=== PATIENT | female | born 1935 | race Caucasian/White ===

== ENCOUNTER 2017-07-02 06:37 | Inpatient (IN) | payer MEDICARE, SELFPAY ==
[2017-06-07 09:24] VITALS: BP 129/67; PULSE 62; RESP 16; TEMP 36.8; O2SAT 96; BMI 34.1
--- NOTE | 2017-06-07 09:44 | SDCEKG_ITS ---
Test Reason : Blood Pressure : / mmHG Vent. Rate : 059 BPM Atrial Rate : 059 BPM P-R Int : 170 ms QRS Dur : 096 ms QT Int : 442 ms P-R-T Axes : 020 049 066 degrees QTc Int : 437 ms Sinus bradycardia Otherwise normal ECG Confirmed by JAIME PASCAL ([id number]), multimedia editor JIM RIBEIRO ([id number] on 06/12/2017 9:59:05 AM Referred By: WILFREDO WOLFF Confirmed By:JAIME PASCAL
[2017-06-07 10:20] LABS: Hematocrit 37.2 % (37-47); Hemoglobin 12.5 g/dl (12.0-15.0); Mean Corp Hgb Conc 33.6 g/gl (32-36); Mean Corpuscular Volume 89.4 fL (81-99); Mean Platelet Vol. 10.3 fl (6.2-12.0); Platelet Count 279 K/mm3 (150-450); RBC Distribution Width CV 13.6 % (11.6-14.6); RBC Distribution Width SD 43.4 fl (35.1-43.9); Red Blood Count 4.16 M/mm3 (4.2-5.4); Scan Indicated on CBC? Y/N NO; White Blood Count 6.1 K/mm3 (4.4-11.0)
[2017-07-02] VITALS (14 sets, daily range): BP systolic 80–155; BP diastolic 38–71; PULSE 68–92; RESP 14–16; TEMP 36–36.7; O2SAT 91–100; BMI 34.1
[2017-07-02 07:17] LABS: Anion Gap 9 (5-15); BUN 21 mg/dL (7-18); BUN/Creat Ratio 20.6 RATIO (10-20); Calcium,Total 8.8 mg/dL (8.5-10.1); Chloride 106 mmol/L (98-107); Creatinine, Serum 1.02 mg/dL (0.55-1.02); EST Glomerular Filtration Rate 55 mL/min (>60); Est Glom Filt Rate - Afr Amer 67 mL/min (>60); Estimated Creatinine Clearance 39.58 ml/min; Glucose 94 mg/dL (74-106); Potassium 3.5 mmol/L (3.5-5.1); Sodium Level 141 mmol/L (136-145)
[2017-07-02] MEDS: Lactated Ringers 1,000 ML 999 ML IV (07:47)
[2017-07-02] MEDS: Cefazolin 2 GM in 0.9% Normal Saline 100 ML IV (09:40)
--- NOTE | 2017-07-02 11:17 | OP.PCM_ITS ---
Report of Operation Date of Procedure: 07/02/17 Pre-Operative Diagnosis: Severe end-stage osteoarthritis right hip Post-Operative Diagnosis: Severe end-stage osteoarthritis right hip Surgery/Procedure Performed:: Total hip arthroplasty right using anterior lateral approach Description of Surgical Findings:: Periarticular osteophytes, subchondral sclerosis consistent with end-stage osteoarthritis Type of Anesthesia:: General Anesthesiologist: Jazzmine Robert Special Medications: txa Specimen's removed: Bone and soft tissue Estimated Blood Loss (mL): 100 Fluids Replaced: See anesthesia report Description of Procedure: Implants: Accolade 2 size 5 femur 127?, 52 cluster hole Trident cup with MDM components metal liner Biolox +4 head Surgical indications: Patient has severe end-stage osteoarthritic changes in the right hip. They have failed conservative measures including activity modification, anti-inflammatories, use of assistive devices. This to the point where the pain affects their ability to enjoy life and complete activities of daily living without discomfort. Patient has elected to undergo the above procedure Procedure description: The patient was greeted in the preoperative area the right hip was marked with surgical marker preoperative antibiotics administered. The patient was then taken to or suite in stable condition. Preoperative tranexamic acid was also utilized. Once the patient was placed in the supine position on the operating room table and once adequate anesthesia was obtained they were then placed in the lateral decubitus position with the surgical hip facing the field. All bony prominences were well-padded. A commercial hip position was utilized. The appropriate extremity was then prepped and draped in usual sterile fashion. Ioban was placed on the skin. Surgical timeout was performed and surgery was commenced. Standard anterolateral approach to the hip was then performed incision was planned and carried out with a #10 blade. Dissection was then carried length of the incision to the IT band which was split proximally and distally. A Charnley retractor was then placed for soft tissue retraction exposing the gluteus medius. The hip was then approached through a transgluteal approach and dislocated through an anterior capsulectomy. Severe eburnation of bone was noted periarticular osteophytes were identified consistent with severe end- stage osteoarthritis. A femoral osteotomy was then created approximately 1 fingerbreadth above the lesser trochanter. This was measured and placed on the back table. Once this was complete acetabular retractors were placed anteriorly and posteriorly and a 4 mm Steinmann pin was placed anterior superior aspect of the acetabulum for soft tissue retention. Labrum was then removed from the acetabulum exposing the entire cup of the acetabulum. Sequential reaming was then commenced and the acetabulum was medialized and sequentially widened in order to accommodate appropriate size cup. The acetabular cup was then impacted into position to the appropriate depth referencing approximately 30? inversion 45? of inclination. Excellent purchase was obtained. No screws were placed in the cup. The metal MDM liner was then placed in the locking mechanism of the acetabulum, locking mechanism was engaged and confirmed to be locked. Attention was then turned to the femoral preparation. The hip was placed in the 90/90 position and a lateralizing box osteotome was utilized. Femoral starting awl was used followed by sequential broaching to the appropriate size. Excellent purchase was obtained with the stem no stem subsidence and excellent rotational stability was confirmed. A calcar reamer was then used in the trial head neck was placed on the broach. The hip was then located and taken through full range of motion flexion internal and external rotation as well as extension. Excellent stability was noted no impingement was identified of the components and leg lengths appear to be appropriate. The hip was at this point dislocated and the trial femoral components were removed. The final femoral stem was then implanted and impacted to the appropriate depth. Again excellent purchase was obtained no stem subsidence or rotational instability was noted. The hip was once again trialed and confirmation of leg length and stability was performed. Soft tissue tension also appeared to be appropriate. At this point the hip was redislocated and the trunnion was cleaned and dried meticulously in the appropriate size femoral head was placed on the clean dry trunnion using a 12/14 Bull taper. The hip was once again relocated and again taken through full range of motion. I did inject a cocktail of postoperative pain medication in the deep and superficial tissues. A quick Betadine bath was performed followed by copious irrigation. Anatomic closure of the gluteus medius and minimus was performed with #1 Vicryl [id number] type fashion followed by closure of the IT band with #1 Vicryl 0 Vicryl was utilized in subcutaneous tissue and surgical fish were placed in the skin. A well- padded nonadherent dressing was applied. Patient was taken to PACU in stable condition. No complications were identified. Will follow standard postop protocol for total hip arthroplasty. Patient must use assistive device for ambulation for approximately 6 weeks of the gluteal musculature heals. - Admit VTE Documentation VTE Present on Admission: Yes VTE Mechan Device Prophylaxis: SCD's, Thigh High EDWARD Hose VTE Pharm Prophylaxis ordered?: Yes
--- NOTE | 2017-07-02 11:40 | RAD_ITS ---
STUDY: X-RAY - PELVIS AND RIGHT HIP REASON FOR EXAM: Female, 82 years old. Total hip replacement. TECHNIQUE: Radiological exam, hip, unilateral, with pelvis when performed; 2 or 3 views. COMPARISON: None. FINDINGS: The patient is status post total right hip replacement. There is good alignment. Postoperative soft tissue changes. RAD/Hip Min 2 Views (Portable) IMPRESSION: Status post total hip replacement. There is good alignment. Postoperative soft tissue changes. Electronically Signed: Manoj Burt MD at 12:23 EST Tel [phone], Service support ,
[2017-07-02] MEDS: Lactated Ringers 1,000 ML 125 ML IV ×2 (12:59→16:49)
--- NOTE | 2017-07-02 13:54 | CASEMGMT ---
Social Work Note Updated by RN MANISHA Tillman - that the pt had called over the weekend expressing interest in staying at the hospital for rehab. According to chart review the pt went to [facility] in 2007. [facility] would not approve [facility], and pt was placed on TCU list. Will confirm discharge plan with pt tomorrow, 07/03. Plan: TCU pending pre-cert. Nevaeh Linares, STRIP MINE SUPERVISOR, SOCK LINING STITCHER
--- NOTE | 2017-07-02 14:20 | PCM.CONS.GEN ---
Problem List (1) Status post total replacement of right hip Status: Acute (2) Depression Status: Chronic (3) Rheumatoid arthritis Status: Chronic (4) Hypertension Status: Chronic Reason for Consult Date of Consultation: 07/02/17 Reason for Consultation: Postoperative medical management. History of Present Illness: The patient is a 82 year old F with past medical history as mentioned above admitted for elective right total hip replacement for 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 At this time, patient denied any significant complaints. Right hip pain is currently under control with the current pain medication regimen. She denied chest pain or shortness of breath. Denies abdominal pain, nausea vomiting. Denies cough or sputum production. Denied fever chills. She has a history of rheumatoid arthritis and she has been on hydroxychloroquine and tramadol for pain and seemed to be under control. She has a history of hypertension and she has been on losartan and Norvasc and also seemed to be under control. She has a history of depression and she has been on Zoloft. At this time, her vital signs are stable, afebrile, pulse ox is 96% on 2 L. CBC from June 07, 2001 reviewed and was unremarkable. BMP from today also reviewed and was unremarkable. Past Medical History Past Medical History (Chronic Problems): Chronic Problems Depression (Chronic) Rheumatoid arthritis (Chronic) Hypertension (Chronic) Allergies ibuprofen Allergy (Verified 06/07/17 09:15) Other REACTION W/ KIDNEYS meloxicam [From Mobic] Allergy (Verified 06/07/17 09:15) Other REACTION WITH KIDNEYS methylprednisolone [From Medrol] Allergy (Verified 06/07/17 09:15) Other MADE HER FEEL FUNNY IN THE HEAD Sulfa (Sulfonamide Antibiotics) Allergy (Verified 06/07/17 09:15) Unknown UNK REACTION-HAD A CHILD Home Medications: Ambulatory Orders Medication Instructions Recorded Amlodipine Besylate [Norvasc] 10 mg PO DAILY 06/07/17 Aspirin E.C. 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 Lives: With Family Smoking Status: Never smoker Alcohol: None Drugs: None - *Family History Maternal History Items: No pertinent history Paternal History Items: No pertinent history Review of Systems Constitutional: Denies: Anorexia, Chills, Fever, Weakness Eyes: Denies: Blurred vision, Double vision, Drainage, Redness HEENT: Denies: Difficulty Hearing, Ear Pain, Eye Pain, Nasal Congestion, Sore Throat Cardiovascular: Denies: Chest Pain, Chest Pressure, Chest Tightness, Heaviness, Light Headedness, Palpitations, Syncope Respiratory: Denies: Cough, Pleuritic Pain, Shortness of Breath, Sputum production, Wheezing Gastrointestinal: Denies: Abdominal Pain, Constipation, Diarrhea, Nausea, Vomiting Genitourinary: Denies: Dysuria, Frequency, Hematuria Musculoskeletal: Reports: Joint Pain. Denies: Arm Pain, Back Pain Skin: Denies: Dryness, Rash Neurological: Denies: Balance problems, Double vision, Slurred speech, Confusion, Focal weakness, Headaches, Tingling Psychiatric: Denies: Anxiety, Depression Endocrine: Denies: Change in Body Habitus, Polydipsia Patient Problems: Active and Suspected Problems Status post total replacement of right hip (Acute) - Physical Exam General: Alert, Oriented x3, Cooperative, No apparent distress HEENT: Atraumatic, PERRLA, EOMI Oral: Moist Mucosa, No Gingival or Mucosal Lesions/ Ulcerations Neck: Supple, No JVD, Negative Carotid Bruits, Trachea Midline, Thyroid Normal Size and Texture Lungs: Clear to auscultation, No rhonchi, No wheeze, No rales, Diminished Cardiovascular: Regular rate, Regular Rhythm, Normal S1, Normal S2, Murmur - Faint systolic murmur. Abdomen: Bowel Sounds Present, Soft, Non Tender, Non-Distended, No Hepato-splenomegaly Extremities: No clubbing, No cyanosis, No edema Skin: No rashes, No breakdown Lymphatic: No Cervical, Supraclavicular, or Inguinal Adenopathy Neurological: Cranial nerves II-XII grossly intact, Motor Exam 5/5 strength throughout Psych/Mental Status: Normal Affect, Appropriate, Alert and oriented to time, place, person, mood and affect Vital Signs Temp Pulse Resp BP Pulse Ox 97.5 F L 78 16 115/38 L 96 07/02/17 12:44 07/02/17 12:44 07/02/17 12:44 07/02/17 12:44 07/02/17 12:44 Oxygen Flow Rate 2 Oxygen Delivery Method Nasal Cannula Weight: 204 lb 15.773 oz Body Mass Index (BMI) 34.1 Intake and Output for Last 24 Hours 06/30/17 07/01/17 07/02/17 23:59 23:59 23:59 Intake Total 2300 / 2300 Balance 2300 / 2300 Laboratory Tests Past 24 Hrs 07/02/17 07:00 Sodium 141 Potassium 3.5 Chloride 106 Carbon Dioxide 26.0 Anion Gap 9 BUN 21 H Creatinine 1.02 Estim Creat Clear Calc 39.58 Est GFR (MDRD) Af Amer 67 Est GFR (MDRD) Non-Af 55 L BUN/Creatinine Ratio 20.6 H Glucose 94 Calcium 8.8 Clinical Impression(s) from Imaging Studies Hip X-Ray 07/02/17 11:40 IMPRESSION: Status post total hip replacement. There is good alignment. Postoperative soft tissue changes. Electronically Signed: Manoj Burt MD at 12:23 EST Tel [phone], Service support , Assessment/Plan Active and Suspected Problems Status post total replacement of right hip (Acute) This is an 82 years old female patient admitted for elective total hip replacement for 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 #1 status post elective right total hip replacement: Days U. At this time, her right hip pain is well controlled with current pain medication regimen. Vital signs are stable. Preop CBC and today's BMP reviewed and were unremarkable. He is on IV cefazolin for perioperative prophylaxis. She is on IV morphine and oxycodone as needed for pain. Orthopedic surgery is managing. #2 hypertension: Blood pressure stable, continue Norvasc and losartan. #3 rheumatoid arthritis: Continue Plaquenil, oxycodone as needed for pain and IV morphine as well. #4 depression: Continue Zoloft. #5 DVT prophylaxis: She is on full dose of aspirin twice daily. This note was generated with [employer] dictation software. It may contain incorrect words, spelling, and punctuation that were not noted in checking the note before signing. Code Visit Inpatient E&M: 67592 Init Hosp L2
--- NOTE | 2017-07-02 14:30 | CON.PCM_ITS ---
Problem List (1) Status post total replacement of right hip Status: Acute (2) Depression Status: Chronic (3) Rheumatoid arthritis Status: Chronic (4) Hypertension Status: Chronic Reason for Consult Date of Consultation: 07/02/17 Reason for Consultation: Postoperative medical management. History of Present Illness: The patient is a 82 year old F with past medical history as mentioned above admitted for elective right total hip replacement for 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 At this time, patient denied any significant complaints. Right hip pain is currently under control with the current pain medication regimen. She denied chest pain or shortness of breath. Denies abdominal pain, nausea vomiting. Denies cough or sputum production. Denied fever chills. She has a history of rheumatoid arthritis and she has been on hydroxychloroquine and tramadol for pain and seemed to be under control. She has a history of hypertension and she has been on losartan and Norvasc and also seemed to be under control. She has a history of depression and she has been on Zoloft. At this time, her vital signs are stable, afebrile , pulse ox is 96% on 2 L. CBC from June 07, 2001 reviewed and was unremarkable. BMP from today also reviewed and was unremarkable. Past Medical History Past Medical History (Chronic Problems): Chronic Problems Depression (Chronic) Rheumatoid arthritis (Chronic) Hypertension (Chronic) Allergies ibuprofen Allergy (Verified 06/07/17 09:15) Other REACTION W/ KIDNEYS meloxicam [From Mobic] Allergy (Verified 06/07/17 09:15) Other REACTION WITH KIDNEYS methylprednisolone [From Medrol] Allergy (Verified 06/07/17 09:15) Other MADE HER FEEL FUNNY IN THE HEAD Sulfa (Sulfonamide Antibiotics) Allergy (Verified 06/07/17 09:15) Unknown UNK REACTION-HAD A CHILD Home Medications: Ambulatory Orders Medication Instructions Recorded Amlodipine Besylate [Norvasc] 10 mg PO DAILY 06/07/17 Aspirin E.C. 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 Lives: With Family Smoking Status: Never smoker Alcohol: None Drugs: None - *Family History Maternal History Items: No pertinent history Paternal History Items: No pertinent history Review of Systems Constitutional: Denies: Anorexia, Chills, Fever, Weakness Eyes: Denies: Blurred vision, Double vision, Drainage, Redness HEENT: Denies: Difficulty Hearing, Ear Pain, Eye Pain, Nasal Congestion, Sore Throat Cardiovascular: Denies: Chest Pain, Chest Pressure, Chest Tightness, Heaviness, Light Headedness, Palpitations, Syncope Respiratory: Denies: Cough, Pleuritic Pain, Shortness of Breath, Sputum production, Wheezing Gastrointestinal: Denies: Abdominal Pain, Constipation, Diarrhea, Nausea, Vomiting Genitourinary: Denies: Dysuria, Frequency, Hematuria Musculoskeletal: Reports: Joint Pain. Denies: Arm Pain, Back Pain Skin: Denies: Dryness, Rash Neurological: Denies: Balance problems, Double vision, Slurred speech, Confusion , Focal weakness, Headaches, Tingling Psychiatric: Denies: Anxiety, Depression Endocrine: Denies: Change in Body Habitus, Polydipsia Patient Problems: Active and Suspected Problems Status post total replacement of right hip (Acute) - Physical Exam General: Alert, Oriented x3, Cooperative, No apparent distress HEENT: Atraumatic, PERRLA, EOMI Oral: Moist Mucosa, No Gingival or Mucosal Lesions/ Ulcerations Neck: Supple, No JVD, Negative Carotid Bruits, Trachea Midline, Thyroid Normal Size and Texture Lungs: Clear to auscultation, No rhonchi, No wheeze, No rales, Diminished Cardiovascular: Regular rate, Regular Rhythm, Normal S1, Normal S2, Murmur - Faint systolic murmur. Abdomen: Bowel Sounds Present, Soft, Non Tender, Non-Distended, No Hepato- splenomegaly Extremities: No clubbing, No cyanosis, No edema Skin: No rashes, No breakdown Lymphatic: No Cervical, Supraclavicular, or Inguinal Adenopathy Neurological: Cranial nerves II-XII grossly intact, Motor Exam 5/5 strength throughout Psych/Mental Status: Normal Affect, Appropriate, Alert and oriented to time, place, person, mood and affect Vital Signs Temp Pulse Resp BP Pulse Ox 97.5 F L 78 16 115/38 L 96 07/02/17 12:44 07/02/17 12:44 07/02/17 12:44 07/02/17 12:44 07/02/17 12:44 Oxygen Flow Rate 2 Oxygen Delivery Method Nasal Cannula Weight: 204 lb 15.773 oz Body Mass Index (BMI) 34.1 Intake and Output for Last 24 Hours 06/30/17 07/01/17 07/02/17 23:59 23:59 23:59 Intake Total 2300 / 2300 Balance 2300 / 2300 Laboratory Tests Past 24 Hrs 07/02/17 07:00 Sodium 141 Potassium 3.5 Chloride 106 Carbon Dioxide 26.0 Anion Gap 9 BUN 21 H Creatinine 1.02 Estim Creat Clear Calc 39.58 Est GFR (MDRD) Af Amer 67 Est GFR (MDRD) Non-Af 55 L BUN/Creatinine Ratio 20.6 H Glucose 94 Calcium 8.8 Clinical Impression(s) from Imaging Studies Hip X-Ray 07/02/17 11:40 IMPRESSION: Status post total hip replacement. There is good alignment. Postoperative soft tissue changes. Electronically Signed: Maonj Burt MD at 12:23 EST Tel [phone], Service support , Assessment/Plan Active and Suspected Problems Status post total replacement of right hip (Acute) This is an 82 years old female patient admitted for elective total hip replacement for 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 #1 status post elective right total hip replacement: Days U. At this time, her right hip pain is well controlled with current pain medication regimen. Vital signs are stable. Preop CBC and today's BMP reviewed and were unremarkable. He is on IV cefazolin for perioperative prophylaxis. She is on IV morphine and oxycodone as needed for pain. Orthopedic surgery is managing. #2 hypertension: Blood pressure stable, continue Norvasc and losartan. #3 rheumatoid arthritis: Continue Plaquenil, oxycodone as needed for pain and IV morphine as well. #4 depression: Continue Zoloft. #5 DVT prophylaxis: She is on full dose of aspirin twice daily. This note was generated with [employer] dictation software. It may contain incorrect words, spelling, and punctuation that were not noted in checking the note before signing. Code Visit Inpatient E&M: 97806 Init Hosp L2
[2017-07-02] MEDS: Ondansetron 4 MG/2 ML Vial IV (14:41)
--- NOTE | 2017-07-02 16:12 | NURSING ---
called to room by ELECTRICAL MAINTENANCE SUPERVISOR requesting assistance to assist pt to bed. pt verbalized nausea and sl. dizziness while sitting in recliner. assisted back to bed and vital checked. placed in reverse trend. pt drowsy but a&ox3. states a little bit dizziness continues
--- NOTE | 2017-07-02 16:16 | NURSING ---
aware Nicky CORMIER sending dr. grant message regarding pt. pt continues to be drowsy but response appropriately.
--- NOTE | 2017-07-02 16:20 | NURSING ---
bed laid flat pt states feels a little better but still sl. nausea. requesting hob raised a little, discussed hob in relation to dizziness. states feels a little better that would like it up. warm blanket applied. no distress noted. call light within reach
[2017-07-02] MEDS: Hydroxychloroquine 200 MG Tablet PO (16:51)
[2017-07-02] MEDS: oxyCODONE 5 MG Tablet PO (16:54)
[2017-07-02] MEDS: Cefazolin 1 GM/50 ML BAG IV (17:26)
[2017-07-02] MEDS: Aspirin 325 MG Tablet PO (21:05)
[2017-07-02] MEDS: Acetaminophen 500 MG Tablet 1000 MG PO (21:05)
[2017-07-02] MEDS: Senna/Docusate Sodium 1 Tablet 2 TABLET PO (21:06)
[2017-07-03] VITALS (7 sets, daily range): BP systolic 127–155; BP diastolic 40–83; PULSE 70–77; RESP 16–18; TEMP 36.3–36.9; O2SAT 95–96
[2017-07-03] MEDS: Lactated Ringers 1,000 ML 125 ML IV (01:19)
[2017-07-03] MEDS: Cefazolin 1 GM/50 ML BAG IV (01:42)
[2017-07-03] MEDS: oxyCODONE 5 MG Tablet PO (01:44)
[2017-07-03 06:00] LABS: Hematocrit 31.1 % (37-47); Hemoglobin 9.9 g/dl (12.0-15.0); Mean Corp Hgb Conc 31.8 g/gl (32-36); Mean Corpuscular Hgb 29.3 pg (27.0-32.0); Platelet Count 243 K/mm3 (150-450); RBC Distribution Width CV 14.4 % (11.6-14.6); Red Blood Count 3.38 M/mm3 (4.2-5.4); White Blood Count 12.4 K/mm3 (4.4-11.0)
[2017-07-03 06:01] LABS: Scan Indicated on CBC? Y/N NO
[2017-07-03 06:17] LABS: Anion Gap 7 (5-15); BUN 16 mg/dL (7-18); BUN/Creat Ratio 18.7 RATIO (10-20); Calcium,Total 8.1 mg/dL (8.5-10.1); Chloride 104 mmol/L (98-107); Creatinine, Serum 0.86 mg/dL (0.55-1.02); EST Glomerular Filtration Rate 68 mL/min (>60); Est Glom Filt Rate - Afr Amer 82 mL/min (>60); Estimated Creatinine Clearance 45.05 ml/min; Glucose 102 mg/dL (74-106); Sodium Level 138 mmol/L (136-145)
[2017-07-03] MEDS: Acetaminophen 500 MG Tablet 1000 MG PO ×3 (06:26→22:13)
[2017-07-03] MEDS: Famotidine 20 MG Tablet PO (06:26)
[2017-07-03] MEDS: amLODIPine 10 MG Tablet PO (07:57)
[2017-07-03] MEDS: Multivitamins,Therapeutic Tablet 1 TABLET PO (07:57)
[2017-07-03] MEDS: Aspirin 325 MG Tablet PO ×2 (07:57→16:33)
[2017-07-03] MEDS: Losartan Potassium 25 MG Tablet PO (07:57)
[2017-07-03] MEDS: Hydroxychloroquine 200 MG Tablet PO ×2 (07:57→16:33)
[2017-07-03] MEDS: Sertraline 100 MG Tablet PO (07:58)
[2017-07-03] MEDS: Senna/Docusate Sodium 1 Tablet 2 TABLET PO ×2 (07:58→22:13)
--- NOTE | 2017-07-03 08:07 | PCM.PN.ORT ---
Patient Problems: Active and Suspected Problems Status post total replacement of right hip (Acute) Subjective: Patient sitting at bedside eating breakfast. Patient states she is having some heartburn, she has not had her Pepcid. Patient denies chest pain, shortness breath, calf pain, nausea vomiting. Patient states pain is been well managed Objective: Cycles clean dry intact, negative signs and symptoms of DVT. Patient's vitals labs within normal limits. Patient is afebrile neurovascular is otherwise intact. - Physical Exam General: Alert, Oriented x3, Cooperative HEENT: PERRLA Oral: Moist Mucosa Neurological: Cranial nerves II-XII grossly intact Psych/Mental Status: Normal Affect, Alert and oriented to time, place, person, mood and affect Vital Signs Temp Pulse Resp BP Pulse Ox 97.3 F L 74 18 155/64 H 95 07/03/17 07:55 07/03/17 07:55 07/03/17 07:55 07/03/17 07:55 07/03/17 07:58 Oxygen Flow Rate 2 Oxygen Delivery Method Nasal Cannula Weight: 92.98 kg Body Mass Index (BMI) 34.1 Intake and Output for Last 24 Hours 07/01/17 07/02/17 07/03/17 23:59 23:59 23:59 Intake Total 2300 / 2300 2100 / 2100 Balance 2300 / 2300 2100 / 2100 Laboratory Tests Past 24 Hrs 07/03/17 07/03/17 05:35 05:35 WBC 12.4 H RBC 3.38 L Hgb 9.9 L Hct 31.1 L MCV 92.0 MCH 29.3 MCHC 31.8 L RDW 14.4 RDW Differential 48.0 H Plt Count 243 MPV 10.0 Sodium 138 Potassium 4.0 Chloride 104 Carbon Dioxide 27.0 Anion Gap 7 BUN 16 Creatinine 0.86 Estim Creat Clear Calc 45.05 Est GFR (MDRD) Af Amer 82 Est GFR (MDRD) Non-Af 68 BUN/Creatinine Ratio 18.7 Glucose 102 Calcium 8.1 L Assessment/Plan Active and Suspected Problems Status post total replacement of right hip (Acute) Status post right total hip arthroplasty Plan 1. Continue all pain medications as prescribed 2. Begin physical therapy today, weight-bear as tolerated with walker. 3. Aspirin 325 mg 1 p.o. every 12 hours ?30 days for postop DVT prophylaxis 4. Encourage incentive spirometry 5. Possible discharge to [facility] fourth floor rehab tomorrow
--- NOTE | 2017-07-03 08:53 | PN_ITS ---
Patient Problems: Active and Suspected Problems Status post total replacement of right hip (Acute) Subjective: Chief complaint: Follow-up after consultation for postoperative medical management. Patient seen and examined. No acute events overnight. Right hip pain is tolerable, under control. She denies any other complaints except mild back discomfort. Denied chest pain or shortness of breath. Denied cough or sputum production. Denies fever chills. Her vital signs are stable. - Physical Exam General: Alert, Oriented x3, Cooperative, No apparent distress HEENT: Atraumatic, PERRLA, EOMI Oral: Moist Mucosa, No Gingival or Mucosal Lesions/ Ulcerations Neck: Supple, No JVD, Negative Carotid Bruits, Trachea Midline, Thyroid Normal Size and Texture Lungs: Clear to auscultation, No rhonchi, No wheeze, No rales, Diminished Cardiovascular: Regular rate, Regular Rhythm, Normal S1, Normal S2, Murmur - Systolic murmur. Abdomen: Bowel Sounds Present, Soft, Non Tender, Non-Distended, No Hepato- splenomegaly Extremities: No clubbing, No cyanosis, No edema Skin: No rashes, No breakdown Lymphatic: No Cervical, Supraclavicular, or Inguinal Adenopathy Neurological: Cranial nerves II-XII grossly intact, Motor Exam 5/5 strength throughout Psych/Mental Status: Normal Affect, Appropriate, Alert and oriented to time, place, person, mood and affect Vital Signs Temp Pulse Resp BP Pulse Ox 97.3 F L 70 18 155/64 H 95 07/03/17 07:55 07/03/17 08:01 07/03/17 07:55 07/03/17 07:55 07/03/17 07:58 Oxygen Flow Rate 1 Oxygen Delivery Method Nasal Cannula Weight: 204 lb 15.773 oz Body Mass Index (BMI) 34.1 Intake and Output for Last 24 Hours 07/01/17 07/02/17 07/03/17 23:59 23:59 23:59 Intake Total 2300 / 2300 2100 Balance 2300 / 2300 2100 Laboratory Tests Past 24 Hrs 07/03/17 07/03/17 05:35 05:35 WBC 12.4 H RBC 3.38 L Hgb 9.9 L Hct 31.1 L MCV 92.0 MCH 29.3 MCHC 31.8 L RDW 14.4 RDW Differential 48.0 H Plt Count 243 MPV 10.0 Sodium 138 Potassium 4.0 Chloride 104 Carbon Dioxide 27.0 Anion Gap 7 BUN 16 Creatinine 0.86 Estim Creat Clear Calc 45.05 Est GFR (MDRD) Af Amer 82 Est GFR (MDRD) Non-Af 68 BUN/Creatinine Ratio 18.7 Glucose 102 Calcium 8.1 L Assessment/Plan Active and Suspected Problems Status post total replacement of right hip (Acute) This is an 82 years old female patient admitted for elective total hip replacement for 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 #1 status post elective right total hip replacement: This was done for severe end-stage right hip osteoarthritis, postoperative day 1. Patient's vital signs are stable, her right hip pain is tolerable, under control with current pain medication regimen.le. CBC from today reviewed, revealed mild leukocytosis likely reactive because of surgery and pain. Hemoglobin came down to 9.9 g/dL. Orthopedic surgery is managing. Plan to DC IV fluids, wean off oxygen, ambulate , repeat CBC tomorrow morning #2 acute anemia: Likely because of blood loss during surgery as well as hemodilution. Today's hemoglobin is 9.9 g/dL. No indication for transfusion. Recommend to repeat CBC tomorrow morning. #3 hypertension: Blood pressure stable, continue Norvasc and losartan. #4 rheumatoid arthritis: Continue Plaquenil, oxycodone as needed for pain. #5 depression: Continue Zoloft. #6 DVT prophylaxis: She is on full dose of aspirin twice daily. This note was generated with [email or web address] dictation software. It may contain incorrect words, spelling, and punctuation that were not noted in checking the note before signing. Code Visit Inpatient E&M: 07814 Subs Hosp L2
--- NOTE | 2017-07-03 08:59 | NURSING ---
Pt up to therapy in hallway, reported feeling dizzy and lightheaded. Assisted to WC by therapy. Back to room, BP 137/46. Bry RN aware. Pt reports not feeling as dizzy as she did yesterday and better now that she is sitting down. Bry RN aware, therapy will do bed exercises and re-eval later today for therapy.
[2017-07-04 03:14] VITALS: BP 117/74; PULSE 75; RESP 12; TEMP 37.2; O2SAT 95
[2017-07-04] MEDS: Acetaminophen 500 MG Tablet 1000 MG PO ×2 (05:50→13:45)
[2017-07-04 06:25] LABS: Hematocrit 31.3 % (37-47); Hemoglobin 10.1 g/dl (12.0-15.0); Mean Corp Hgb Conc 32.3 g/gl (32-36); Mean Corpuscular Hgb 29.5 pg (27.0-32.0); Mean Corpuscular Volume 91.5 fL (81-99); Mean Platelet Vol. 10.1 fl (6.2-12.0); Platelet Count 255 K/mm3 (150-450); RBC Distribution Width CV 14.5 % (11.6-14.6); RBC Distribution Width SD 48.5 fl (35.1-43.9); Red Blood Count 3.42 M/mm3 (4.2-5.4); White Blood Count 13.4 K/mm3 (4.4-11.0)
[2017-07-04 06:53] LABS: Scan Indicated on CBC? Y/N NO
[2017-07-04 07:58] VITALS: O2SAT 95
[2017-07-04 08:11] VITALS: BP 119/46; PULSE 79; RESP 16; TEMP 37.4; O2SAT 93
--- NOTE | 2017-07-04 08:20 | EKG12_ITS ---
Test Reason : Blood Pressure : / mmHG Vent. Rate : 075 BPM Atrial Rate : 075 BPM P-R Int : 162 ms QRS Dur : 092 ms QT Int : 376 ms P-R-T Axes : 035 019 053 degrees QTc Int : 419 ms Normal sinus rhythm Nonspecific ST and T wave abnormality Abnormal ECG When compared with ECG of 07-JUN-2017 09:47, No significant change was found Confirmed by DIANNA SIMMONS, CAMMIE ([id number]), newspaper photo editor JIM RIBEIRO ([id number]) on 07/18/2017 1:34:30 PM Referred By: RADHA Confirmed By:CAMMIE BUSTAMANTE MD
--- NOTE | 2017-07-04 08:32 | PCM.PROGNOTE ---
Patient Problems: Active and Suspected Problems Status post total replacement of right hip (Acute) Subjective: Chief complaint: Follow-up after after consultation for postoperative medical management. Patient seen and examined. No acute events overnight. This morning, she complained of epigastric pain and discomfort mainly when she eats. She does have a history of GERD and she has been on Zantac. She denied chest pain or shortness of breath. Denied nausea vomiting. Right hip pain is well-controlled. Vital signs are stable. - Physical Exam General: Alert, Oriented x3, Cooperative, No apparent distress HEENT: Atraumatic, PERRLA, EOMI Oral: Moist Mucosa, No Gingival or Mucosal Lesions/ Ulcerations Neck: Supple, No JVD, Negative Carotid Bruits, Trachea Midline, Thyroid Normal Size and Texture Lungs: Clear to auscultation, No rhonchi, No wheeze, No rales Cardiovascular: Regular rate, Regular Rhythm, Normal S1, Normal S2, PMI Normal Abdomen: Bowel Sounds Present, Soft, Non Tender, Non-Distended, No Hepato-splenomegaly Extremities: No clubbing, No cyanosis, No edema Skin: No rashes, No breakdown Lymphatic: No Cervical, Supraclavicular, or Inguinal Adenopathy Neurological: Cranial nerves II-XII grossly intact, Motor Exam 5/5 strength throughout Psych/Mental Status: Normal Affect, Appropriate, Alert and oriented to time, place, person, mood and affect Vital Signs Temp Pulse Resp BP Pulse Ox 99.3 F H 79 16 119/46 L 93 07/04/17 08:11 07/04/17 08:11 07/04/17 08:11 07/04/17 08:11 07/04/17 08:11 Oxygen Flow Rate 1 Oxygen Delivery Method Room Air Weight: 204 lb 15.773 oz Body Mass Index (BMI) 34.1 Intake and Output for Last 24 Hours 07/02/17 07/03/17 07/04/17 23:59 23:59 23:59 Intake Total 2300 / 2300 2101 / 2101 400 / 400 Balance 2300 / 2300 2101 / 2101 400 / 400 Laboratory Tests Past 24 Hrs 07/04/17 06:04 WBC 13.4 H RBC 3.42 L Hgb 10.1 L Hct 31.3 L MCV 91.5 MCH 29.5 MCHC 32.3 RDW 14.5 RDW Differential 48.5 H Plt Count 255 MPV 10.1 Assessment/Plan Active and Suspected Problems Status post total replacement of right hip (Acute) This is an 82 years old female patient admitted for elective total hip replacement for 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 #1 status post elective right total hip replacement: This was done for severe end-stage right hip osteoarthritis, postoperative day 2. Patient's vital signs are stable, her right hip pain is tolerable, under control with current pain medication regimen.le. Repeat CBC from today reveals mild leukocytosis and hemoglobin of 10.1 g/dL which improved. Patient complained of epigastric discomfort upon eating, likely due to GERD. EKG performed and revealed normal sinus rhythm, normal CO interval, normal QRS, normal QTC and no evidence of acute ischemic changes. Her symptoms likely due to GERD. Plan: EKG, DC Pepcid, start Protonix twice daily, Mylanta as needed. Patient is medically stable and can be discharged. #2 acute anemia: Likely because of blood loss during surgery as well as hemodilution. Today's hemoglobin is 10.1 g/dL. No indication for transfusion. #3 hypertension: Blood pressure stable, continue Norvasc and losartan. #4 rheumatoid arthritis: Continue Plaquenil, oxycodone as needed for pain. #5 depression: Continue Zoloft. #6 DVT prophylaxis: She is on full dose of aspirin twice daily. This note was generated with [employer] dictation software. It may contain incorrect words, spelling, and punctuation that were not noted in checking the note before signing. Code Visit Inpatient E&M: 67091 Subs Hosp L2
--- NOTE | 2017-07-04 08:38 | PN_ITS ---
Patient Problems: Active and Suspected Problems Status post total replacement of right hip (Acute) Subjective: Chief complaint: Follow-up after after consultation for postoperative medical management. Patient seen and examined. No acute events overnight. This morning, she complained of epigastric pain and discomfort mainly when she eats. She does have a history of GERD and she has been on Zantac. She denied chest pain or shortness of breath. Denied nausea vomiting. Right hip pain is well- controlled. Vital signs are stable. - Physical Exam General: Alert, Oriented x3, Cooperative, No apparent distress HEENT: Atraumatic, PERRLA, EOMI Oral: Moist Mucosa, No Gingival or Mucosal Lesions/ Ulcerations Neck: Supple, No JVD, Negative Carotid Bruits, Trachea Midline, Thyroid Normal Size and Texture Lungs: Clear to auscultation, No rhonchi, No wheeze, No rales Cardiovascular: Regular rate, Regular Rhythm, Normal S1, Normal S2, PMI Normal Abdomen: Bowel Sounds Present, Soft, Non Tender, Non-Distended, No Hepato- splenomegaly Extremities: No clubbing, No cyanosis, No edema Skin: No rashes, No breakdown Lymphatic: No Cervical, Supraclavicular, or Inguinal Adenopathy Neurological: Cranial nerves II-XII grossly intact, Motor Exam 5/5 strength throughout Psych/Mental Status: Normal Affect, Appropriate, Alert and oriented to time, place, person, mood and affect Vital Signs Temp Pulse Resp BP Pulse Ox 99.3 F H 79 16 119/46 L 93 07/04/17 08:11 07/04/17 08:11 07/04/17 08:11 07/04/17 08:11 07/04/17 08:11 Oxygen Flow Rate 1 Oxygen Delivery Method Room Air Weight: 204 lb 15.773 oz Body Mass Index (BMI) 34.1 Intake and Output for Last 24 Hours 07/02/17 07/03/17 07/04/17 23:59 23:59 23:59 Intake Total 2300 / 2300 2101 / 2101 400 / 400 Balance 2300 / 2300 2101 / 2101 400 / 400 Laboratory Tests Past 24 Hrs 07/04/17 06:04 WBC 13.4 H RBC 3.42 L Hgb 10.1 L Hct 31.3 L MCV 91.5 MCH 29.5 MCHC 32.3 RDW 14.5 RDW Differential 48.5 H Plt Count 255 MPV 10.1 Assessment/Plan Active and Suspected Problems Status post total replacement of right hip (Acute) This is an 82 years old female patient admitted for elective total hip replacement for 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 #1 status post elective right total hip replacement: This was done for severe end-stage right hip osteoarthritis, postoperative day 2. Patient's vital signs are stable, her right hip pain is tolerable, under control with current pain medication regimen.le. Repeat CBC from today reveals mild leukocytosis and hemoglobin of 10.1 g/dL which improved. Patient complained of epigastric discomfort upon eating, likely due to GERD. EKG performed and revealed normal sinus rhythm, normal TX interval, normal QRS, normal QTC and no evidence of acute ischemic changes. Her symptoms likely due to GERD. Plan: EKG, DC Pepcid , start Protonix twice daily, Mylanta as needed. Patient is medically stable and can be discharged. #2 acute anemia: Likely because of blood loss during surgery as well as hemodilution. Today's hemoglobin is 10.1 g/dL. No indication for transfusion. #3 hypertension: Blood pressure stable, continue Norvasc and losartan. #4 rheumatoid arthritis: Continue Plaquenil, oxycodone as needed for pain. #5 depression: Continue Zoloft. #6 DVT prophylaxis: She is on full dose of aspirin twice daily. This note was generated with [employer] dictation software. It may contain incorrect words, spelling, and punctuation that were not noted in checking the note before signing. Code Visit Inpatient E&M: 13743 Subs Hosp L2
--- NOTE | 2017-07-04 08:45 | CASEMGMT ---
Social Work Note Face to face with the pt to discuss discharge plan. Introduced self and role at [facility]. The pt confirms that she did call and was requesting to stay at the hospital and potentially on the 4th floor. Explain that the pt's insurance has been denying RU and that TCU does have a bed. Pt is agreeable to placement at TCU. Pre-cert has been initiated. Will continue to follow and assist with discharge planning. Plan: TCU pending pre-cert.
[2017-07-04] MEDS: Hydroxychloroquine 200 MG Tablet PO (09:05)
[2017-07-04] MEDS: Multivitamins,Therapeutic Tablet 1 TABLET PO (09:05)
[2017-07-04] MEDS: Aspirin 325 MG Tablet PO (09:05)
--- NOTE | 2017-07-04 09:23 | PCA ---
therapy working with pt
--- NOTE | 2017-07-04 10:21 | NURSING ---
REVIEWED VITAL SIGNS TAKEN BY KATHY KRISHNAMURTHY IN[employer] SUPPORT.
[2017-07-04] MEDS: Losartan Potassium 25 MG Tablet PO (10:58)
[2017-07-04] MEDS: Senna/Docusate Sodium 1 Tablet 2 TABLET PO (10:58)
[2017-07-04] MEDS: Sertraline 100 MG Tablet PO (10:58)
[2017-07-04] MEDS: amLODIPine 10 MG Tablet PO (10:58)
[2017-07-04] MEDS: Pantoprazole Sodium 40 MG Tablet PO (10:58)
[2017-07-04] MEDS: oxyCODONE 5 MG Tablet PO (11:56)
--- NOTE | 2017-07-04 13:13 | PCM.PN.ORT ---
Patient Problems: Active and Suspected Problems Status post total replacement of right hip (Acute) Subjective: Patient sitting at lunch, states she is still having a lot of pain with swallowing. Patient states she has had this previously as she does have reported history of GERD. Denies chest pain, shortness breath, calf pain, nausea vomiting. Patient states her pain with her total hip is otherwise been well controlled and is ready for discharge to [facility]CU for her continued postop rehab Objective: Dressings clean dry intact, negative signs and symptoms of DVT. Patient's no respiratory distress. Patient's vitals labs within normal limits. Patient is afebrile neurovascular is otherwise intact. EKG obtained, and interpreted by medicine shows normal sinus rhythm. - Physical Exam General: Alert, Oriented x3, Cooperative Neurological: Cranial nerves II-XII grossly intact Psych/Mental Status: Normal Affect, Alert and oriented to time, place, person, mood and affect Vital Signs Temp Pulse Resp BP Pulse Ox 99.3 F H 79 16 119/46 L 93 07/04/17 08:11 07/04/17 08:11 07/04/17 08:11 07/04/17 08:11 07/04/17 08:11 Oxygen Flow Rate 1 Oxygen Delivery Method Room Air Weight: 92.98 kg Body Mass Index (BMI) 34.1 Intake and Output for Last 24 Hours 07/02/17 07/03/17 07/04/17 23:59 23:59 23:59 Intake Total 2300 / 2300 2101 / 2101 700 / 700 Balance 2300 / 2300 2101 / 2101 700 / 700 Laboratory Tests Past 24 Hrs 07/04/17 06:04 WBC 13.4 H RBC 3.42 L Hgb 10.1 L Hct 31.3 L MCV 91.5 MCH 29.5 MCHC 32.3 RDW 14.5 RDW Differential 48.5 H Plt Count 255 MPV 10.1 Assessment/Plan Active and Suspected Problems Status post total replacement of right hip (Acute) Status post right total hip arthroplasty Plan 1. Continue all pain medications as prescribed 2. Continue physical therapy today, weight-bear as tolerated with walker. 3. Aspirin 325 mg 1 p.o. every 12 hours ?30 days for postop DVT prophylaxis 4. Follow-up as scheduled with Dr. Swain, see pink sheet 5. Discharge to [facility] TCU today 6. Change dressing to AG dressing prior to discharge 7. Dressing will remain in place until 07/13/2017
--- NOTE | 2017-07-04 13:29 | PCM.DC.THR ---
Discharge Diet: No Restrictions Discharge Activity: May Not Drive, May Shower, Use Walker May shower in (days): 1 - only if incision is dry and without drainage. Do NOT soak/submerge in tub/pool/franks/stream/hot tub. May resume sexual activity in: No Restrictions Ice area for (Minutes): 20 - every hour while awake Weight Bearing Status: Weight bearing as tolerated Lifting Restrictions: 20 pounds Elevate: Operative Extremity Call your doctor if your incision/area has: Continuous Slow Oozing, Sudden Increased Bleeding, Increased Pain/ Swelling, Increased Redness, Foul Smelling Discharge Call your doctor if you observe: Fever of 101 or Higher, Inability to urinate, Inability to have a bowel movement, Shortness of breath, Fainting spells, Chest pain, Increased palpitations (irregular heartbeat), Calf discomfort, Uncontrolled pain Change Dressing in (Days):: 0 - Change daily and as needed. Remove Dressing in (days):: 9 Cleanse incision/area with: Soap & Water Additional Dressing/Incision Instructions:: staple removal 07-13-2017 Allergies/Adverse Reactions: Allergies ibuprofen Allergy (Verified 06/07/17 09:15) Other REACTION W/ KIDNEYS meloxicam [From Mobic] Allergy (Verified 06/07/17 09:15) Other REACTION WITH KIDNEYS methylprednisolone [From Medrol] Allergy (Verified 06/07/17 09:15) Other MADE HER FEEL FUNNY IN THE HEAD Sulfa (Sulfonamide Antibiotics) Allergy (Verified 06/07/17 09:15) Unknown UNK REACTION-HAD A CHILD Medications to take at Discharge Amlodipine Besylate [Norvasc] 10 mg PO DAILY 06/07/17 Hydroxychloroquine [Plaquenil] 200 mg PO BIDCM 06/07/17 Losartan Potassium [Cozaar] 25 mg PO DAILY 06/07/17 Multivitamin [Daily Multiple Vitamin] 1 each PO DAILY 06/07/17 Ranitidine [Zantac] 150 mg PO BID 06/07/17 Sertraline HCl [Zoloft] 100 mg PO DAILY 06/07/17 Acetaminophen [Tylenol] 1,000 mg PO Q8 #90 tab 07/04/17 Aspirin 325 mg PO BIDCM #60 tab 07/04/17 Mag Hydrox/Al Hydrox/Simeth [Mylanta II] 10 ml PO Q6H PRN PRN udc 07/04/17 MorphINE [Ms Contin] 15 mg PO BID 7 Days #14 tab 07/04/17 Oxycodone [Oxyir] 5 - 10 mg PO Q4H PRN PRN 7 Days #45 tab 07/04/17 Pantoprazole Sodium [Protonix] 40 mg PO BID #60 tab 07/04/17 The following prescriptions were given: Oxycodone [Oxyir] 5 - 10 mg PO Q4H PRN PRN 7 Days #45 tab PRN Reason: Mod-Severe Pain (-02/20) Acetaminophen [Tylenol] 1,000 mg PO Q8 #90 tab Aspirin 325 mg PO BIDCM #60 tab MorphINE [Ms Contin] 15 mg PO BID 7 Days #14 tab Pantoprazole Sodium [Protonix] 40 mg PO BID #60 tab Primary Care Physician: Donn Barajas MD [Primary Care Provider] - Please Follow Up With: Celso Swain DO When: see pink sheet
[2017-07-04 13:36] VITALS: BP 135/43; PULSE 73; RESP 16; TEMP 37.1; O2SAT 93
--- NOTE | 2017-07-04 13:57 | PCA ---
pt in therapy
--- NOTE | 2017-07-04 14:28 | NURSING ---
report called to [facility] on TCU for discharge.
--- NOTE | 2017-07-04 15:10 | NURSING ---
REVIEWED AFTERNOON VITALS TAKEN BY CORPORAL Head [employer] TRAFFIC ANALYSIS TECHNICIAN.
== END 2017-07-04 15:10 | disposition skilled nursing facility (03) | DRG 470 ==
PROVIDERS: Anesthesiology; Admitting Provider Orthopaedic Surgery; Family Provider Family Medicine; PCP Family Medicine; Visit Provider Orthopaedic Surgery
PROC: 0SR90JZ Replacement of Right Hip Joint with Synthetic Substitute, Open Approach (ICD-10-PCS; CPT 27130; principal; 2017-07-02 08:20)
DX: M16.11 Unilateral primary osteoarthritis, right hip (principal); M06.9 Rheumatoid arthritis, unspecified; D62 Acute posthemorrhagic anemia; I10 Essential (primary) hypertension; F32.9 Major depressive disorder, single episode, unspecified; Z79.899 Other long term (current) drug therapy; K21.9 Gastro-esophageal reflux disease without esophagitis; E66.3 Overweight; Z68.34 Body mass index [BMI] 34.0-34.9, adult
CPT/HCPCS: 36415; 73502; 80048; 85027; 93005; 97110; 97116; 97162; 97166; 97530; 97535; 97802; J7040; J7120; J2405

== ENCOUNTER 2017-07-04 15:18 | Inpatient (IN) | payer MEDICARE, SELFPAY ==
--- NOTE | 2017-07-04 15:20 | NURSING ---
PT ARRIVED FROM [facility] RT TOTAL HIP VIA WC
[2017-07-04 15:24] VITALS: BP 133/55; PULSE 75; RESP 20; TEMP 36.8; O2SAT 91
[2017-07-04 15:33] VITALS: BMI 28.0
[2017-07-04 15:38] VITALS: BMI 35.1
[2017-07-04] MEDS: Pantoprazole Sodium 40 MG Tablet PO (17:52)
[2017-07-04] MEDS: Aspirin 325 MG Tablet PO (17:52)
[2017-07-04] MEDS: Senna/Docusate Sodium 1 Tablet 2 TABLET PO (17:52)
[2017-07-04] MEDS: Famotidine 20 MG Tablet PO (17:52)
[2017-07-04] MEDS: Hydroxychloroquine 200 MG Tablet PO (17:52)
[2017-07-04] MEDS: Magnesium Citrate 300 ML PO (19:22)
--- NOTE | 2017-07-04 19:33 | PCM.HP.STD ---
Problem List (1) Osteoarthritis of right hip Status: Chronic (2) GERD (gastroesophageal reflux disease) Status: Chronic (3) Depression Status: Chronic (4) Rheumatoid arthritis Status: Chronic (5) Hypertension Status: Chronic History of Present Illness Date of Admission: 07/04/17 Chief Complaint: Here for rehabilitation, strengthening, prior to discharge home with family. The patient is a 82 year old Female with below past medical history hospitalized for right total hip arthroplasty 07/02/[address] Swain. Post-operative course was unremarkable. Admit to TCU for rehabilitation, strengthening, prior to discharge home with family. Resident did c/o chest pain, EKG normal in hospital. Her symptoms are consistent with gastroesophageal reflux disease. She also has not had BM for 3 days, maybe contributing. Past Medical History Past Medical History (Chronic Problems): Chronic Problems Osteoarthritis of right hip (Chronic) GERD (gastroesophageal reflux disease) (Chronic) Depression (Chronic) Rheumatoid arthritis (Chronic) Hypertension (Chronic) Allergies ibuprofen Allergy (Verified 06/07/17 09:15) Other REACTION W/ KIDNEYS meloxicam [From Mobic] Allergy (Verified 06/07/17 09:15) Other REACTION WITH KIDNEYS methylprednisolone [From Medrol] Allergy (Verified 06/07/17 09:15) Other MADE HER FEEL FUNNY IN THE HEAD Sulfa (Sulfonamide Antibiotics) Allergy (Verified 06/07/17 09:15) Unknown UNK REACTION-HAD A CHILD Home Medications: Ambulatory Orders Medication Instructions Recorded Amlodipine Besylate [Norvasc] 10 mg PO DAILY 06/07/17 Hydroxychloroquine [Plaquenil] 200 mg PO BIDCM 06/07/17 Losartan Potassium [Cozaar] 25 mg PO DAILY 06/07/17 Multivitamin [Daily Multiple 1 each PO DAILY 06/07/17 Vitamin] Ranitidine [Zantac] 150 mg PO BID 06/07/17 Sertraline HCl [Zoloft] 100 mg PO DAILY 06/07/17 Acetaminophen [Tylenol] 1,000 mg PO Q8 07/04/17 Aspirin 325 mg PO BIDCM 07/04/17 Mag Hydrox/Al Hydrox/Simeth 10 ml PO Q6H PRN PRN udc 07/04/17 [Mylanta II] MorphINE [Ms Contin] 15 mg PO BID 07/04/17 Oxycodone [Oxyir] 5 - 10 mg PO Q4H PRN PRN 7 Days 07/04/17 #45 tab Pantoprazole Sodium [Protonix] 40 mg PO BID 07/04/17 Surgical History: total hip arthroplasty - Right., total knee arthroplasty Psychiatric History: Depression TRAILER STEERER History: No pertinent TRAILER STEERER history Lives: With Family Smoking Status: Never smoker Tobacco Use: Non-smoker Alcohol: None Drugs: None - *Family History Maternal History Items: No pertinent history Paternal History Items: No pertinent history Review of Systems Constitutional: Denies: Chills, Fever, Weight Change HEENT: Denies: Head Aches, Sinus Congestion, Sinus Drainage Cardiovascular: Denies: Chest Pain, Palpitations Respiratory: Denies: Cough, Shortness of breath at rest, Sputum production Gastrointestinal: Reports: Constipation, Dyspepsia. Denies: Abdominal Pain, Nausea, Vomiting Genitourinary: Denies: Dysuria Musculoskeletal: Denies: Joint Pain, Joint Tenderness Skin: Denies: Rash, Wounds Neurological: Denies: Numbness, Tingling, Focal weakness Psychiatric: Denies: Anxiety, Depression, Homicidal Ideations, Suicidal Ideations Hematologic/ Lymphatic: Denies: Easy Bruising, Easy Bleeding VTE Information - Inpt Only VTE Present on Admission: No VTE Mechan Device Prophylaxis: Knee High EDWARD Hose VTE Pharm Prophylaxis ordered?: Yes - Physical Exam General: Alert, Oriented x3, Cooperative HEENT: Atraumatic, PERRLA, EOMI, Normocephalic Neck: Supple, No JVD, Negative Carotid Bruits Lungs: Clear to auscultation, Normal air movement Cardiovascular: Regular rate, No murmurs Abdomen: Bowel Sounds Present, Soft, Non Tender Extremities: No edema, Capillary Refill Less than 3 Seconds Skin: No rashes, No breakdown, Incision - Right hip clean, dry, intact. Musculoskeletal: No Tenderness to Palpation of Joints or Extremities Neurological: Cranial nerves II-XII grossly intact Psych/Mental Status: Normal Affect, Appropriate Vital Signs Temp Pulse Resp BP Pulse Ox 98.3 F 75 20 H 133/55 H 91 07/04/17 15:24 07/04/17 15:24 07/04/17 15:24 07/04/17 15:24 07/04/17 15:24 Oxygen Delivery Method Room Air Weight: 95.793 kg Body Mass Index (BMI) 35.1 Assessment/Plan 82 year old female with below past medical history hospitalized for right total hip arthroplasty 07/02/[address] Celso Swain admitted to TCU for rehabilitation, strengthening, prior to discharge home with family. Debility - PT/OT. Pain - Tylenol 1000MG Q8H, Oxycodone 5-10MG Q4H PRN moderate to severe pain. Bowel - Magnesium citrate 300ML PO x 1 dose, Miralax 17GM daily, Senna/colace 2 tablets BID, Dulcolax 10MG PO daily PRN. Pneumonia vaccination - Administer Prevnar 13 and/or Pneumovax 23 as necessary. DVT prophylaxis - Aspirin 325MG BID. Hypertension - Losartan 25MG daily, Amlodipine 10MG daily. Nutrition - Ensure 120ML 4x/day, MVI daily. Rheumatoid Arthritis - Plaquenil 200MG BID. GERD - Pantoprazole 40MG BID, Mylanta II 10ML Q6H PRN, irritation from Aspirin/Plaquenil, if still having symptoms, will add Carate 1GM QACHS. Depression - Sertraline 100MG daily.
--- NOTE | 2017-07-04 19:38 | HP.PCM_ITS ---
Problem List (1) Osteoarthritis of right hip Status: Chronic (2) GERD (gastroesophageal reflux disease) Status: Chronic (3) Depression Status: Chronic (4) Rheumatoid arthritis Status: Chronic (5) Hypertension Status: Chronic History of Present Illness Date of Admission: 07/04/17 Chief Complaint: Here for rehabilitation, strengthening, prior to discharge home with family. The patient is a 82 year old Female with below past medical history hospitalized for right total hip arthroplasty 07/02/[address] Swain. Post- operative course was unremarkable. Admit to TCU for rehabilitation, strengthening, prior to discharge home with family. Resident did c/o chest pain, EKG normal in hospital. Her symptoms are consistent with gastroesophageal reflux disease. She also has not had BM for 3 days, maybe contributing. Past Medical History Past Medical History (Chronic Problems): Chronic Problems Osteoarthritis of right hip (Chronic) GERD (gastroesophageal reflux disease) (Chronic) Depression (Chronic) Rheumatoid arthritis (Chronic) Hypertension (Chronic) Allergies ibuprofen Allergy (Verified 06/07/17 09:15) Other REACTION W/ KIDNEYS meloxicam [From Mobic] Allergy (Verified 06/07/17 09:15) Other REACTION WITH KIDNEYS methylprednisolone [From Medrol] Allergy (Verified 06/07/17 09:15) Other MADE HER FEEL FUNNY IN THE HEAD Sulfa (Sulfonamide Antibiotics) Allergy (Verified 06/07/17 09:15) Unknown UNK REACTION-HAD A CHILD Home Medications: Ambulatory Orders Medication Instructions Recorded Amlodipine Besylate [Norvasc] 10 mg PO DAILY 06/07/17 Hydroxychloroquine [Plaquenil] 200 mg PO BIDCM 06/07/17 Losartan Potassium [Cozaar] 25 mg PO DAILY 06/07/17 Multivitamin [Daily Multiple 1 each PO DAILY 06/07/17 Vitamin] Ranitidine [Zantac] 150 mg PO BID 06/07/17 Sertraline HCl [Zoloft] 100 mg PO DAILY 06/07/17 Acetaminophen [Tylenol] 1,000 mg PO Q8 07/04/17 Aspirin 325 mg PO BIDCM 07/04/17 Mag Hydrox/Al Hydrox/Simeth 10 ml PO Q6H PRN PRN udc 07/04/17 [Mylanta II] MorphINE [Ms Contin] 15 mg PO BID 07/04/17 Oxycodone [Oxyir] 5 - 10 mg PO Q4H PRN PRN 7 Days 07/04/17 #45 tab Pantoprazole Sodium [Protonix] 40 mg PO BID 07/04/17 Surgical History: total hip arthroplasty - Right., total knee arthroplasty Psychiatric History: Depression CORPORATE GENERAL MANAGER History: No pertinent CORPORATE GENERAL MANAGER history Lives: With Family Smoking Status: Never smoker Tobacco Use: Non-smoker Alcohol: None Drugs: None - *Family History Maternal History Items: No pertinent history Paternal History Items: No pertinent history Review of Systems Constitutional: Denies: Chills, Fever, Weight Change HEENT: Denies: Head Aches, Sinus Congestion, Sinus Drainage Cardiovascular: Denies: Chest Pain, Palpitations Respiratory: Denies: Cough, Shortness of breath at rest, Sputum production Gastrointestinal: Reports: Constipation, Dyspepsia. Denies: Abdominal Pain, Nausea, Vomiting Genitourinary: Denies: Dysuria Musculoskeletal: Denies: Joint Pain, Joint Tenderness Skin: Denies: Rash, Wounds Neurological: Denies: Numbness, Tingling, Focal weakness Psychiatric: Denies: Anxiety, Depression, Homicidal Ideations, Suicidal Ideations Hematologic/ Lymphatic: Denies: Easy Bruising, Easy Bleeding VTE Information - Inpt Only VTE Present on Admission: No VTE Mechan Device Prophylaxis: Knee High EDWARD Hose VTE Pharm Prophylaxis ordered?: Yes - Physical Exam General: Alert, Oriented x3, Cooperative HEENT: Atraumatic, PERRLA, EOMI, Normocephalic Neck: Supple, No JVD, Negative Carotid Bruits Lungs: Clear to auscultation, Normal air movement Cardiovascular: Regular rate, No murmurs Abdomen: Bowel Sounds Present, Soft, Non Tender Extremities: No edema, Capillary Refill Less than 3 Seconds Skin: No rashes, No breakdown, Incision - Right hip clean, dry, intact. Musculoskeletal: No Tenderness to Palpation of Joints or Extremities Neurological: Cranial nerves II-XII grossly intact Psych/Mental Status: Normal Affect, Appropriate Vital Signs Temp Pulse Resp BP Pulse Ox 98.3 F 75 20 H 133/55 H 91 07/04/17 15:24 07/04/17 15:24 07/04/17 15:24 07/04/17 15:24 07/04/17 15:24 Oxygen Delivery Method Room Air Weight: 95.793 kg Body Mass Index (BMI) 35.1 Assessment/Plan 82 year old female with below past medical history hospitalized for right total hip arthroplasty 07/02/[address] Celso Swain admitted to TCU for rehabilitation, strengthening, prior to discharge home with family. * Debility - PT/OT. * Pain - Tylenol 1000MG Q8H, Oxycodone 5-10MG Q4H PRN moderate to severe pain. * Bowel - Magnesium citrate 300ML PO x 1 dose, Miralax 17GM daily, Senna/colace 2 tablets BID, Dulcolax 10MG PO daily PRN. * Pneumonia vaccination - Administer Prevnar 13 and/or Pneumovax 23 as necessary. * DVT prophylaxis - Aspirin 325MG BID. * Hypertension - Losartan 25MG daily, Amlodipine 10MG daily. * Nutrition - Ensure 120ML 4x/day, MVI daily. * Rheumatoid Arthritis - Plaquenil 200MG BID. * GERD - Pantoprazole 40MG BID, Mylanta II 10ML Q6H PRN, irritation from Aspirin /Plaquenil, if still having symptoms, will add Carate 1GM QACHS. * Depression - Sertraline 100MG daily.
[2017-07-04] MEDS: Acetaminophen 500 MG Tablet 1000 MG PO (21:28)
[2017-07-04] MEDS: Mag Hydrox/Al Hydrox/Simeth 30 ML UDC 10 ML PO (21:49)
[2017-07-05 06:19] LABS: Absolute Lymphocyte Count 1.04 X10^3/ul (0.83-4.51); Absolute Neutrophil Count 8.4 X10^3/uL (2.0-7.7); Basophil# 0.02 X10^3/uL; Basophil% 0.2 % (0-1); Eosinophil# 0.14 X10^3/uL; Eosinophils% 1.3 % (0-5); Hematocrit 28.9 % (37-47); Hemoglobin 9.2 g/dl (12.0-15.0); Lymphocyte # 1.04 X10^3/ul (4.0); Lymphocyte % 9.5 % (19-41); Mean Corp Hgb Conc 31.8 g/gl (32-36); Mean Corpuscular Hgb 29.4 pg (27.0-32.0); Mean Corpuscular Volume 92.3 fL (81-99); Mean Platelet Vol. 10.6 fl (6.2-12.0); Monocyte# 1.33 X10^3/uL; Monocyte% 12.2 % (0-10); Neutrophil # 8.35 X10^3/uL (2.7-7.7); Neutrophil % 76.4 % (47-70); Platelet Count 242 K/mm3 (150-450); RBC Distribution Width CV 14.3 % (11.6-14.6); RBC Distribution Width SD 46.6 fl (35.1-43.9); Red Blood Count 3.13 M/mm3 (4.2-5.4); White Blood Count 10.9 K/mm3 (4.4-11.0)
[2017-07-05] MEDS: Losartan Potassium 25 MG Tablet PO (06:24)
[2017-07-05] MEDS: Pantoprazole Sodium 40 MG Tablet PO ×2 (06:24→16:49)
[2017-07-05] MEDS: Acetaminophen 500 MG Tablet 1000 MG PO ×3 (06:24→21:21)
[2017-07-05] MEDS: Sertraline 100 MG Tablet PO (06:24)
[2017-07-05] MEDS: amLODIPine 10 MG Tablet PO (06:24)
[2017-07-05 06:26] LABS: Anion Gap 8 (5-15); BUN 17 mg/dL (7-18); BUN/Creat Ratio 21.2 RATIO (10-20); Calcium,Total 8.3 mg/dL (8.5-10.1); Chloride 105 mmol/L (98-107); EST Glomerular Filtration Rate 73 mL/min (>60); Est Glom Filt Rate - Afr Amer 89 mL/min (>60); Estimated Creatinine Clearance 50.47 ml/min; Glucose 90 mg/dL (74-106); Potassium 3.6 mmol/L (3.5-5.1); Sodium Level 140 mmol/L (136-145)
[2017-07-05 06:28] LABS: POSITIVE COUNT NO; POSITIVE DIFFERENTIAL NO; POSITIVE MORPHOLOGY NO
[2017-07-05] MEDS: Aspirin 325 MG Tablet PO ×2 (08:26→16:49)
[2017-07-05] MEDS: Hydroxychloroquine 200 MG Tablet PO ×2 (08:26→16:49)
[2017-07-05] MEDS: Mag Hydrox/Al Hydrox/Simeth 30 ML UDC 10 ML PO (08:26)
--- NOTE | 2017-07-05 09:25 | NURSING ---
Addendum entered by Feli Porter 07/05/17 10:36: pt updated. Original Note: Addendum entered by Feli Porter 07/05/17 10:30: pt awake, called out to use BR, pt continues to c/o indigestion. Dr Youngblood notified, new order to get abd xray and carafate 1 gm 4x achs Original Note: pt c/o indigestion this am, PRN mylanta given. Pt had small bm this morning per report after drinking only 1/3 of mag citrate that was ordered. Pt also refused her miralax this AM. Will update Dr Youngblood. pt sleeping, sitting up in recliner chair. call light in reach.
--- NOTE | 2017-07-05 10:28 | RAD_ITS ---
STUDY: X-RAY - ABDOMEN/PELVIS REASON FOR EXAM: Female, 82 years old. Constipation. Recent hip surgery. TECHNIQUE: Two AP supine views of the abdomen and pelvis. COMPARISON: None. FINDINGS: Mild increased markings at the right lung base suggestive of atelectasis. Small right pleural effusion. There is an unremarkable bowel gas pattern. There is no demonstrated free abdominal air. The visualized liver, spleen and kidneys are grossly normal in size and morphology. Normal soft tissue structures. Status post right total hip replacement. RAD/Abdomen Single View IMPRESSION: Nonspecific bowel gas pattern. Mild right basilar atelectasis and small right pleural effusion. Electronically Signed: Manoj Burt MD at 11:29 EST Tel [phone], Service support ,
--- NOTE | 2017-07-05 10:39 | NURSING ---
Taken to radiology for KUB.
[2017-07-05] MEDS: Sucralfate 1 GM Tablet PO ×3 (11:11→21:21)
[2017-07-05] MEDS: Tuberculin,Purif.prot.deriv. 50 TU/ML Vial 5 ML ID (11:11)
--- NOTE | 2017-07-05 11:14 | NURSING ---
This nurse encourages resident to continue drinking Mag Citrate. Agreeable to do this. Continues to complain of indigestion.
--- NOTE | 2017-07-05 12:26 | NURSING ---
Addendum entered by Feli Porter 07/05/17 12:30: pt had first dose of carafate this am before lunch, but refusing to eat d/t feeling like food won't go down. speech consulted. Original Note: dr kohler updated on xray, no new orders, just continue with carafate as ordered this am
--- NOTE | 2017-07-05 14:45 | NURSING ---
Speech evaluated pt and feels that it is related to her reflux & recommending pt go back on homem regimen of zantac. While on acute side she was taking therapeutic interchange pepcid, then it was changed to protonix. Protonix ineffective.
[2017-07-05 16:00] VITALS: BP 148/61; PULSE 76; RESP 20; TEMP 36.8; O2SAT 94
[2017-07-05] MEDS: RANITIDINE HCL 150 MG TABLET PO (17:44)
[2017-07-06] MEDS: RANITIDINE HCL 150 MG TABLET PO ×2 (06:33→17:26)
[2017-07-06] MEDS: Acetaminophen 500 MG Tablet 1000 MG PO ×3 (06:33→21:37)
[2017-07-06] MEDS: Losartan Potassium 25 MG Tablet PO (06:33)
[2017-07-06] MEDS: Sucralfate 1 GM Tablet PO ×4 (06:33→21:38)
[2017-07-06] MEDS: amLODIPine 10 MG Tablet PO (06:33)
[2017-07-06] MEDS: Sertraline 100 MG Tablet PO (06:33)
[2017-07-06] MEDS: Aspirin 325 MG Tablet PO ×2 (08:31→17:25)
[2017-07-06] MEDS: Iron Polysaccharide Complex 150 MG CAPSULE PO (08:31)
[2017-07-06] MEDS: Hydroxychloroquine 200 MG Tablet PO ×2 (08:31→17:25)
[2017-07-06 15:51] VITALS: BP 151/61; PULSE 79; RESP 20; TEMP 36.9; O2SAT 95
--- NOTE | 2017-07-06 17:29 | NURSING ---
PT C/O INDIGESTION. DENIES WANTING MYLANTA. STATES IT DOESNT HELP
[2017-07-07] MEDS: Acetaminophen 500 MG Tablet 1000 MG PO ×3 (06:31→21:43)
[2017-07-07] MEDS: Senna/Docusate Sodium 1 Tablet 2 TABLET PO (06:31)
[2017-07-07] MEDS: Sucralfate 1 GM Tablet PO ×4 (06:32→21:43)
[2017-07-07] MEDS: amLODIPine 10 MG Tablet PO (06:32)
[2017-07-07] MEDS: Losartan Potassium 25 MG Tablet PO (06:32)
[2017-07-07] MEDS: Sertraline 100 MG Tablet PO (06:32)
[2017-07-07] MEDS: RANITIDINE HCL 150 MG TABLET PO ×2 (06:34→16:28)
[2017-07-07] MEDS: Aspirin 325 MG Tablet PO ×2 (08:04→16:28)
[2017-07-07] MEDS: Hydroxychloroquine 200 MG Tablet PO ×2 (08:04→16:28)
[2017-07-07] MEDS: Iron Polysaccharide Complex 150 MG CAPSULE PO (08:04)
[2017-07-07 15:54] VITALS: BP 150/74; PULSE 73; RESP 20; TEMP 37.3; O2SAT 95
[2017-07-08 05:07] VITALS: PULSE 72; O2SAT 97
[2017-07-08] MEDS: Losartan Potassium 25 MG Tablet PO (06:39)
[2017-07-08] MEDS: RANITIDINE HCL 150 MG TABLET PO ×2 (06:39→16:02)
[2017-07-08] MEDS: amLODIPine 10 MG Tablet PO (06:39)
[2017-07-08] MEDS: Sertraline 100 MG Tablet PO (06:40)
[2017-07-08] MEDS: Sucralfate 1 GM Tablet PO ×4 (06:40→21:05)
[2017-07-08] MEDS: Acetaminophen 500 MG Tablet 1000 MG PO ×3 (06:40→21:05)
[2017-07-08] MEDS: Hydroxychloroquine 200 MG Tablet PO ×2 (07:43→16:02)
[2017-07-08] MEDS: Aspirin 325 MG Tablet PO ×2 (07:43→16:02)
[2017-07-08] MEDS: Iron Polysaccharide Complex 150 MG CAPSULE PO (07:43)
[2017-07-08 16:00] VITALS: BP 140/59; PULSE 64; RESP 20; TEMP 37.1; O2SAT 95
[2017-07-09] MEDS: Acetaminophen 500 MG Tablet 1000 MG PO ×3 (06:07→21:28)
[2017-07-09] MEDS: Sucralfate 1 GM Tablet PO ×4 (06:07→21:29)
[2017-07-09] MEDS: Losartan Potassium 25 MG Tablet PO (06:07)
[2017-07-09] MEDS: Sertraline 100 MG Tablet PO (06:07)
[2017-07-09] MEDS: amLODIPine 10 MG Tablet PO (06:07)
[2017-07-09] MEDS: RANITIDINE HCL 150 MG TABLET PO ×2 (06:08→17:04)
[2017-07-09] MEDS: Hydroxychloroquine 200 MG Tablet PO ×2 (07:12→17:04)
[2017-07-09] MEDS: Aspirin 325 MG Tablet PO ×2 (07:12→17:04)
[2017-07-09] MEDS: Iron Polysaccharide Complex 150 MG CAPSULE PO (07:12)
--- NOTE | 2017-07-09 14:49 | PCM.PN.RX ---
<Walter Coronelip D - Last Filed: 07/09/17 14:49> Progress Note - Pharmacy Subjective: TCU Admission Objective: Allergies ibuprofen Allergy (Verified 06/07/17 09:15) Other REACTION W/ KIDNEYS meloxicam [From Mobic] Allergy (Verified 06/07/17 09:15) Other REACTION WITH KIDNEYS methylprednisolone [From Medrol] Allergy (Verified 06/07/17 09:15) Other MADE HER FEEL FUNNY IN THE HEAD Sulfa (Sulfonamide Antibiotics) Allergy (Verified 06/07/17 09:15) Unknown UNK REACTION-HAD A CHILD Home Medications Medication Instructions Recorded Amlodipine Besylate [Norvasc] 10 mg PO DAILY 06/07/17 Hydroxychloroquine [Plaquenil] 200 mg PO BIDCM 06/07/17 Losartan Potassium [Cozaar] 25 mg PO DAILY 06/07/17 Multivitamin [Daily Multiple 1 each PO DAILY 06/07/17 Vitamin] Ranitidine [Zantac] 150 mg PO BID 06/07/17 Sertraline HCl [Zoloft] 100 mg PO DAILY 06/07/17 Acetaminophen [Tylenol] 1,000 mg PO Q8 07/04/17 Aspirin 325 mg PO BIDCM 07/04/17 Mag Hydrox/Al Hydrox/Simeth 10 ml PO Q6H PRN PRN udc 07/04/17 [Mylanta II] MorphINE [Ms Contin] 15 mg PO BID 07/04/17 Oxycodone [Oxyir] 5 - 10 mg PO Q4H PRN PRN 7 Days 07/04/17 #45 tab Pantoprazole Sodium [Protonix] 40 mg PO BID 07/04/17 Current Medications Generic Name Dose Route Start Last Admin Trade Name Freq PRN Reason Stop Dose Admin Acetaminophen 1,000 mg 07/04/17 22:00 07/09/17 13:30 Tylenol PO 1,000 mg Q8 MATT Administration Al Hydroxide/Mg Hydroxide 10 ml 07/04/17 15:44 07/05/17 08:26 Mylanta Ii PO 10 ml Q6H PRN PRN Administration INDIGESTION Amlodipine Besylate 10 mg 07/05/17 06:00 07/09/17 06:07 Norvasc PO 10 mg DAILY MATT Administration Aspirin 325 mg 07/04/17 17:00 07/09/17 07:12 Aspirin PO 08/01/17 18:00 325 mg BIDCM [facility] Administration Bisacodyl 10 mg 07/04/17 15:30 Dulcolax PO DAILY PRN PRN Constipation Hydroxychloroquine Sulfate 200 mg 07/04/17 17:00 07/09/17 07:12 Plaquenil PO 200 mg BIDCM [facility] Administration Losartan Potassium 25 mg 07/05/17 06:00 07/09/17 06:07 Cozaar PO 25 mg DAILY [facility] Administration Oxycodone HCl 5 - 10 mg 07/04/17 15:44 Oxyir PO Q4H PRN PRN MOD-SEVERE PAIN (4-02/20) Polyethylene Glycol 17 gm 07/05/17 06:00 07/09/17 06:05 Miralax PO Not Given DAILY [facility] Polysaccharide Iron Complex 150 mg 07/06/17 08:00 07/09/17 07:12 Ferrex 150 PO 150 mg DAILYCM [facility] Administration Ranitidine HCl 150 mg 07/05/17 18:00 07/09/17 06:08 Ranitidine Hcl PO 150 mg BID [facility] Administration Senna/Docusate Sodium 2 tablet 07/04/17 18:00 07/09/17 06:05 Senokot-S, Jodi-Colace PO Not Given BID [facility] Sertraline HCl 100 mg 07/05/17 06:00 07/09/17 06:07 Zoloft PO 100 mg DAILY [facility] Administration Sucralfate 1 gm 07/05/17 11:00 07/09/17 10:44 Carafate PO 1 gm 1HR_ACHS MATT Administration Tuberculin PPD 5 tu 07/12/17 10:00 Tubersol, Aplisol, Ppd ID 07/12/17 10:01 X1 ONE Problem List Osteoarthritis of right hip (Chronic) GERD (gastroesophageal reflux disease) (Chronic) Vital Signs Temp Pulse Resp BP Pulse Ox 98.7 F 64 20 H 140/59 H 95 07/08/17 16:00 07/08/17 16:00 07/08/17 16:00 07/08/17 16:00 07/08/17 16:00 Oxygen Delivery Method Room Air Weight: 95.8 kg Body Mass Index (BMI) 35.1 Sodium 140 mmol/L (136-145) 07/05/17 05:10 Potassium 3.6 mmol/L (3.5-5.1) 07/05/17 05:10 Chloride 105 mmol/L (98-107) 07/05/17 05:10 Carbon Dioxide 27.0 mmol/L (21.0-32.0) 07/05/17 05:10 Anion Gap 8 (5-15) 07/05/17 05:10 BUN 17 mg/dL (7-18) 07/05/17 05:10 Creatinine 0.80 mg/dL (0.55-1.02) 07/05/17 05:10 Est GFR (MDRD) Af Amer 89 mL/min (>60) 07/05/17 05:10 Est GFR (MDRD) Non-Af 73 mL/min (>60) 07/05/17 05:10 BUN/Creatinine Ratio 21.2 RATIO (10-20) H 07/05/17 05:10 Glucose 90 mg/dL (74-106) 07/05/17 05:10 Assessment/Plan: 1) Pain APAP scheduled, hydroxychloroquine, oxycodone prn. Continue to monitor daily pain scores. 2) HTN Amlodipine, losartan. Avg BP < 150/80 mmHg, K wnl, BUN/SCr at baseline. Continue to monitor BP, renal function, electrolytes. 3) GI Maalox prn, ranitidine twice daily, sucralfate 4x daily. Continue to monitor prn medication use, for s/s GI distress. 4) Nutrition Fe daily. Continue to monitor clinically. 5) DVT PPx ASA twice daily. Continue to monitor s/s bleeding/clot. Psychotropic Medications: 6) Depression Sertraline daily. Continue to monitor s/s depression. Unnecessary Medications: None Bowel Regimen: 7) Senna/s, PEG, prn bisacodyl. Continue to monitor prn medication use, for constipation/diarrhea. Date of Note:: 07/09/17 - Provider Comments Provider responsibility: Provider responsible to enter orders to implement recommendations <Colin Youngblood Chi - Last Filed: 07/09/17 16:35> Progress Note - Pharmacy Subjective: [] Objective: Allergies ibuprofen Allergy (Verified 06/07/17 09:15) Other REACTION W/ KIDNEYS meloxicam [From Mobic] Allergy (Verified 06/07/17 09:15) Other REACTION WITH KIDNEYS methylprednisolone [From Medrol] Allergy (Verified 06/07/17 09:15) Other MADE HER FEEL FUNNY IN THE HEAD Sulfa (Sulfonamide Antibiotics) Allergy (Verified 06/07/17 09:15) Unknown UNK REACTION-HAD A CHILD Home Medications Medication Instructions Recorded Amlodipine Besylate [Norvasc] 10 mg PO DAILY 06/07/17 Hydroxychloroquine [Plaquenil] 200 mg PO BIDCM 06/07/17 Losartan Potassium [Cozaar] 25 mg PO DAILY 06/07/17 Multivitamin [Daily Multiple 1 each PO DAILY 06/07/17 Vitamin] Ranitidine [Zantac] 150 mg PO BID 06/07/17 Sertraline HCl [Zoloft] 100 mg PO DAILY 06/07/17 Acetaminophen [Tylenol] 1,000 mg PO Q8 07/04/17 Aspirin 325 mg PO BIDCM 07/04/17 Mag Hydrox/Al Hydrox/Simeth 10 ml PO Q6H PRN PRN udc 07/04/17 [Mylanta II] MorphINE [Ms Contin] 15 mg PO BID 07/04/17 Oxycodone [Oxyir] 5 - 10 mg PO Q4H PRN PRN 7 Days 07/04/17 #45 tab Pantoprazole Sodium [Protonix] 40 mg PO BID 07/04/17 Current Medications Generic Name Dose Route Start Last Admin Trade Name Freq PRN Reason Stop Dose Admin Acetaminophen 1,000 mg 07/04/17 22:00 07/09/17 13:30 Tylenol PO 1,000 mg Q8 MATT Administration Al Hydroxide/Mg Hydroxide 10 ml 07/04/17 15:44 07/05/17 08:26 Mylanta Ii PO 10 ml Q6H PRN PRN Administration INDIGESTION Amlodipine Besylate 10 mg 07/05/17 06:00 07/09/17 06:07 Norvasc PO 10 mg DAILY MATT Administration Aspirin 325 mg 07/04/17 17:00 07/09/17 07:12 Aspirin PO 08/01/17 18:00 325 mg BIDCM MATT Administration Bisacodyl 10 mg 07/04/17 15:30 Dulcolax PO DAILY PRN PRN Constipation Hydroxychloroquine Sulfate 200 mg 07/04/17 17:00 07/09/17 07:12 Plaquenil PO 200 mg BIDCM MATT Administration Losartan Potassium 25 mg 07/05/17 06:00 07/09/17 06:07 Cozaar PO 25 mg DAILY MATT Administration Oxycodone HCl 5 - 10 mg 07/04/17 15:44 Oxyir PO Q4H PRN PRN MOD-SEVERE PAIN (4-1010) Polyethylene Glycol 17 gm 07/05/17 06:00 07/09/17 06:05 Miralax PO Not Given DAILY MATT Polysaccharide Iron Complex 150 mg 07/06/17 08:00 07/09/17 07:12 Ferrex 150 PO 150 mg DAILYCM MATT Administration Ranitidine HCl 150 mg 07/05/17 18:00 07/09/17 06:08 Ranitidine Hcl PO 150 mg BID MATT Administration Senna/Docusate Sodium 2 tablet 07/04/17 18:00 07/09/17 06:05 Senokot-S, Jodi-Colace PO Not Given BID MATT Sertraline HCl 100 mg 07/05/17 06:00 07/09/17 06:07 Zoloft PO 100 mg DAILY MATT Administration Sucralfate 1 gm 07/05/17 11:00 07/09/17 10:44 Carafate PO 1 gm 1HR_ACHS MATT Administration Tuberculin PPD 5 tu 07/12/17 10:00 Tubersol, Aplisol, Ppd ID 07/12/17 10:01 X1 ONE Problem List Osteoarthritis of right hip (Chronic) GERD (gastroesophageal reflux disease) (Chronic) Vital Signs Temp Pulse Resp BP Pulse Ox 98.3 F 70 18 163/61 H 98 07/09/17 16:00 07/09/17 16:00 07/09/17 16:00 07/09/17 16:00 07/09/17 16:00 Oxygen Delivery Method Room Air Weight: 95.8 kg Body Mass Index (BMI) 35.1 Sodium 140 mmol/L (136-145) 07/05/17 05:10 Potassium 3.6 mmol/L (3.5-5.1) 07/05/17 05:10 Chloride 105 mmol/L (98-107) 07/05/17 05:10 Carbon Dioxide 27.0 mmol/L (21.0-32.0) 07/05/17 05:10 Anion Gap 8 (5-15) 07/05/17 05:10 BUN 17 mg/dL (7-18) 07/05/17 05:10 Creatinine 0.80 mg/dL (0.55-1.02) 07/05/17 05:10 Est GFR (MDRD) Af Amer 89 mL/min (>60) 07/05/17 05:10 Est GFR (MDRD) Non-Af 73 mL/min (>60) 07/05/17 05:10 BUN/Creatinine Ratio 21.2 RATIO (10-20) H 07/05/17 05:10 Glucose 90 mg/dL (74-106) 07/05/17 05:10 Assessment/Plan: Psychotropic Medications: Unnecessary Medications: Bowel Regimen: - Provider Comments Provider responsibility: Provider responsible to enter orders to implement recommendations Provider Comments to Recommendations by Pharmacy: Agree
--- NOTE | 2017-07-09 14:59 | PHA.CONS_ITS ---
<Walter Coronelip D - Last Filed: 07/09/17 14:49> Progress Note - Pharmacy Subjective: TCU Admission Objective: Allergies ibuprofen Allergy (Verified 06/07/17 09:15) Other REACTION W/ KIDNEYS meloxicam [From Mobic] Allergy (Verified 06/07/17 09:15) Other REACTION WITH KIDNEYS methylprednisolone [From Medrol] Allergy (Verified 06/07/17 09:15) Other MADE HER FEEL FUNNY IN THE HEAD Sulfa (Sulfonamide Antibiotics) Allergy (Verified 06/07/17 09:15) Unknown UNK REACTION-HAD A CHILD Home Medications Medication Instructions Recorded Amlodipine Besylate [Norvasc] 10 mg PO DAILY 06/07/17 Hydroxychloroquine [Plaquenil] 200 mg PO BIDCM 06/07/17 Losartan Potassium [Cozaar] 25 mg PO DAILY 06/07/17 Multivitamin [Daily Multiple 1 each PO DAILY 06/07/17 Vitamin] Ranitidine [Zantac] 150 mg PO BID 06/07/17 Sertraline HCl [Zoloft] 100 mg PO DAILY 06/07/17 Acetaminophen [Tylenol] 1,000 mg PO Q8 07/04/17 Aspirin 325 mg PO BIDCM 07/04/17 Mag Hydrox/Al Hydrox/Simeth 10 ml PO Q6H PRN PRN udc 07/04/17 [Mylanta II] MorphINE [Ms Contin] 15 mg PO BID 07/04/17 Oxycodone [Oxyir] 5 - 10 mg PO Q4H PRN PRN 7 Days 07/04/17 #45 tab Pantoprazole Sodium [Protonix] 40 mg PO BID 07/04/17 Current Medications Generic Name Dose Route Start Last Admin Trade Name Freq PRN Reason Stop Dose Admin Acetaminophen 1,000 mg 07/04/17 22:00 07/09/17 13:30 Tylenol PO 1,000 mg Q8 MATT Administration Al Hydroxide/Mg Hydroxide 10 ml 07/04/17 15:44 07/05/17 08:26 Mylanta Ii PO 10 ml Q6H PRN PRN Administration INDIGESTION Amlodipine Besylate 10 mg 07/05/17 06:00 07/09/17 06:07 Norvasc PO 10 mg DAILY MATT Administration Aspirin 325 mg 07/04/17 17:00 07/09/17 07:12 Aspirin PO 08/01/17 18:00 325 mg BIDCM [facility] Administration Bisacodyl 10 mg 07/04/17 15:30 Dulcolax PO DAILY PRN PRN Constipation Hydroxychloroquine Sulfate 200 mg 07/04/17 17:00 07/09/17 07:12 Plaquenil PO 200 mg BIDCM [facility] Administration Losartan Potassium 25 mg 07/05/17 06:00 07/09/17 06:07 Cozaar PO 25 mg DAILY [facility] Administration Oxycodone HCl 5 - 10 mg 07/04/17 15:44 Oxyir PO Q4H PRN PRN MOD-SEVERE PAIN (4-02/20) Polyethylene Glycol 17 gm 07/05/17 06:00 07/09/17 06:05 Miralax PO Not Given DAILY [facility] Polysaccharide Iron Complex 150 mg 07/06/17 08:00 07/09/17 07:12 Ferrex 150 PO 150 mg DAILYCM [facility] Administration Ranitidine HCl 150 mg 07/05/17 18:00 07/09/17 06:08 Ranitidine Hcl PO 150 mg BID [facility] Administration Senna/Docusate Sodium 2 tablet 07/04/17 18:00 07/09/17 06:05 Senokot-S, Jodi-Colace PO Not Given BID [facility] Sertraline HCl 100 mg 07/05/17 06:00 07/09/17 06:07 Zoloft PO 100 mg DAILY [facility] Administration Sucralfate 1 gm 07/05/17 11:00 07/09/17 10:44 Carafate PO 1 gm 1HR_ACHS MATT Administration Tuberculin PPD 5 tu 07/12/17 10:00 Tubersol, Aplisol, Ppd ID 07/12/17 10:01 X1 ONE Problem List Osteoarthritis of right hip (Chronic) GERD (gastroesophageal reflux disease) (Chronic) Vital Signs Temp Pulse Resp BP Pulse Ox 98.7 F 64 20 H 140/59 H 95 07/08/17 16:00 07/08/17 16:00 07/08/17 16:00 07/08/17 16:00 07/08/17 16:00 Oxygen Delivery Method Room Air Weight: 95.8 kg Body Mass Index (BMI) 35.1 Sodium 140 mmol/L (136-145) 07/05/17 05:10 Potassium 3.6 mmol/L (3.5-5.1) 07/05/17 05:10 Chloride 105 mmol/L (98-107) 07/05/17 05:10 Carbon Dioxide 27.0 mmol/L (21.0-32.0) 07/05/17 05:10 Anion Gap 8 (5-15) 07/05/17 05:10 BUN 17 mg/dL (7-18) 07/05/17 05:10 Creatinine 0.80 mg/dL (0.55-1.02) 07/05/17 05:10 Est GFR (MDRD) Af Amer 89 mL/min (>60) 07/05/17 05:10 Est GFR (MDRD) Non-Af 73 mL/min (>60) 07/05/17 05:10 BUN/Creatinine Ratio 21.2 RATIO (10-20) H 07/05/17 05:10 Glucose 90 mg/dL (74-106) 07/05/17 05:10 Assessment/Plan: 1) Pain APAP scheduled, hydroxychloroquine, oxycodone prn. Continue to monitor daily pain scores. 2) HTN Amlodipine, losartan. Avg BP < 150/80 mmHg, K wnl, BUN/SCr at baseline. Continue to monitor BP, renal function, electrolytes. 3) GI Maalox prn, ranitidine twice daily, sucralfate 4x daily. Continue to monitor prn medication use, for s/s GI distress. 4) Nutrition Fe daily. Continue to monitor clinically. 5) DVT PPx ASA twice daily. Continue to monitor s/s bleeding/clot. Psychotropic Medications: 6) Depression Sertraline daily. Continue to monitor s/s depression. Unnecessary Medications: None Bowel Regimen: 7) Senna/s, PEG, prn bisacodyl. Continue to monitor prn medication use, for constipation/diarrhea. Date of Note:: 07/09/17 - Provider Comments Provider responsibility: Provider responsible to enter orders to implement recommendations <Colin Youngblood Chi - Last Filed: 07/09/17 16:35> Progress Note - Pharmacy Subjective: [] Objective: Allergies ibuprofen Allergy (Verified 06/07/17 09:15) Other REACTION W/ KIDNEYS meloxicam [From Mobic] Allergy (Verified 06/07/17 09:15) Other REACTION WITH KIDNEYS methylprednisolone [From Medrol] Allergy (Verified 06/07/17 09:15) Other MADE HER FEEL FUNNY IN THE HEAD Sulfa (Sulfonamide Antibiotics) Allergy (Verified 06/07/17 09:15) Unknown UNK REACTION-HAD A CHILD Home Medications Medication Instructions Recorded Amlodipine Besylate [Norvasc] 10 mg PO DAILY 06/07/17 Hydroxychloroquine [Plaquenil] 200 mg PO BIDCM 06/07/17 Losartan Potassium [Cozaar] 25 mg PO DAILY 06/07/17 Multivitamin [Daily Multiple 1 each PO DAILY 06/07/17 Vitamin] Ranitidine [Zantac] 150 mg PO BID 06/07/17 Sertraline HCl [Zoloft] 100 mg PO DAILY 06/07/17 Acetaminophen [Tylenol] 1,000 mg PO Q8 07/04/17 Aspirin 325 mg PO BIDCM 07/04/17 Mag Hydrox/Al Hydrox/Simeth 10 ml PO Q6H PRN PRN udc 07/04/17 [Mylanta II] MorphINE [Ms Contin] 15 mg PO BID 07/04/17 Oxycodone [Oxyir] 5 - 10 mg PO Q4H PRN PRN 7 Days 07/04/17 #45 tab Pantoprazole Sodium [Protonix] 40 mg PO BID 07/04/17 Current Medications Generic Name Dose Route Start Last Admin Trade Name Freq PRN Reason Stop Dose Admin Acetaminophen 1,000 mg 07/04/17 22:00 07/09/17 13:30 Tylenol PO 1,000 mg Q8 MATT Administration Al Hydroxide/Mg Hydroxide 10 ml 07/04/17 15:44 07/05/17 08:26 Mylanta Ii PO 10 ml Q6H PRN PRN Administration INDIGESTION Amlodipine Besylate 10 mg 07/05/17 06:00 07/09/17 06:07 Norvasc PO 10 mg DAILY MATT Administration Aspirin 325 mg 07/04/17 17:00 07/09/17 07:12 Aspirin PO 08/01/17 18:00 325 mg BIDCM MATT Administration Bisacodyl 10 mg 07/04/17 15:30 Dulcolax PO DAILY PRN PRN Constipation Hydroxychloroquine Sulfate 200 mg 07/04/17 17:00 07/09/17 07:12 Plaquenil PO 200 mg BIDCM MATT Administration Losartan Potassium 25 mg 07/05/17 06:00 07/09/17 06:07 Cozaar PO 25 mg DAILY MATT Administration Oxycodone HCl 5 - 10 mg 07/04/17 15:44 Oxyir PO Q4H PRN PRN MOD-SEVERE PAIN (4-1010) Polyethylene Glycol 17 gm 07/05/17 06:00 07/09/17 06:05 Miralax PO Not Given DAILY MATT Polysaccharide Iron Complex 150 mg 07/06/17 08:00 07/09/17 07:12 Ferrex 150 PO 150 mg DAILYCM MATT Administration Ranitidine HCl 150 mg 07/05/17 18:00 07/09/17 06:08 Ranitidine Hcl PO 150 mg BID MATT Administration Senna/Docusate Sodium 2 tablet 07/04/17 18:00 07/09/17 06:05 Senokot-S, Jodi-Colace PO Not Given BID MATT Sertraline HCl 100 mg 07/05/17 06:00 07/09/17 06:07 Zoloft PO 100 mg DAILY MATT Administration Sucralfate 1 gm 07/05/17 11:00 07/09/17 10:44 Carafate PO 1 gm 1HR_ACHS MATT Administration Tuberculin PPD 5 tu 07/12/17 10:00 Tubersol, Aplisol, Ppd ID 07/12/17 10:01 X1 ONE Problem List Osteoarthritis of right hip (Chronic) GERD (gastroesophageal reflux disease) (Chronic) Vital Signs Temp Pulse Resp BP Pulse Ox 98.3 F 70 18 163/61 H 98 07/09/17 16:00 07/09/17 16:00 07/09/17 16:00 07/09/17 16:00 07/09/17 16:00 Oxygen Delivery Method Room Air Weight: 95.8 kg Body Mass Index (BMI) 35.1 Sodium 140 mmol/L (136-145) 07/05/17 05:10 Potassium 3.6 mmol/L (3.5-5.1) 07/05/17 05:10 Chloride 105 mmol/L (98-107) 07/05/17 05:10 Carbon Dioxide 27.0 mmol/L (21.0-32.0) 07/05/17 05:10 Anion Gap 8 (5-15) 07/05/17 05:10 BUN 17 mg/dL (7-18) 07/05/17 05:10 Creatinine 0.80 mg/dL (0.55-1.02) 07/05/17 05:10 Est GFR (MDRD) Af Amer 89 mL/min (>60) 07/05/17 05:10 Est GFR (MDRD) Non-Af 73 mL/min (>60) 07/05/17 05:10 BUN/Creatinine Ratio 21.2 RATIO (10-20) H 07/05/17 05:10 Glucose 90 mg/dL (74-106) 07/05/17 05:10 Assessment/Plan: Psychotropic Medications: Unnecessary Medications: Bowel Regimen: - Provider Comments Provider responsibility: Provider responsible to enter orders to implement recommendations Provider Comments to Recommendations by Pharmacy: Agree
[2017-07-09 16:00] VITALS: BP 163/61; PULSE 70; RESP 18; TEMP 36.8; O2SAT 98
[2017-07-10] MEDS: Sertraline 100 MG Tablet PO (06:28)
[2017-07-10] MEDS: Sucralfate 1 GM Tablet PO ×4 (06:28→21:23)
[2017-07-10] MEDS: Acetaminophen 500 MG Tablet 1000 MG PO ×3 (06:28→21:23)
[2017-07-10] MEDS: amLODIPine 10 MG Tablet PO (06:28)
[2017-07-10] MEDS: Losartan Potassium 25 MG Tablet PO (06:29)
[2017-07-10] MEDS: RANITIDINE HCL 150 MG TABLET PO ×2 (06:31→16:22)
[2017-07-10] MEDS: Hydroxychloroquine 200 MG Tablet PO ×2 (08:54→16:22)
[2017-07-10] MEDS: Aspirin 325 MG Tablet PO ×2 (08:55→16:21)
[2017-07-10] MEDS: Iron Polysaccharide Complex 150 MG CAPSULE PO (08:55)
--- NOTE | 2017-07-10 12:12 | CASEMGMT ---
Insurance Clinical information faxed. Pending continued stay approval at this time. Auth#[id number] Meagan ARAUJO, INFECTION CONTROL MANAGER
--- NOTE | 2017-07-10 15:36 | CASEMGMT ---
Brief interview for mental status (BIMS) and resident mood interview (PHQ-9) completed on this day. BIMS score 15. PHQ-9 score 06/09
[2017-07-10 16:00] VITALS: BP 128/55; PULSE 69; RESP 20; TEMP 36.3; O2SAT 95
[2017-07-11] MEDS: Losartan Potassium 25 MG Tablet PO (06:36)
[2017-07-11] MEDS: Acetaminophen 500 MG Tablet 1000 MG PO ×3 (06:36→21:05)
[2017-07-11] MEDS: Sucralfate 1 GM Tablet PO ×4 (06:36→21:05)
[2017-07-11] MEDS: amLODIPine 10 MG Tablet PO (06:36)
[2017-07-11] MEDS: Sertraline 100 MG Tablet PO (06:36)
[2017-07-11] MEDS: RANITIDINE HCL 150 MG TABLET PO ×2 (06:38→16:00)
[2017-07-11] MEDS: Hydroxychloroquine 200 MG Tablet PO ×2 (07:20→16:00)
[2017-07-11] MEDS: Iron Polysaccharide Complex 150 MG CAPSULE PO (07:20)
[2017-07-11] MEDS: Aspirin 325 MG Tablet PO ×2 (07:20→16:00)
--- NOTE | 2017-07-11 09:07 | CASEMGMT ---
Addendum entered by Meagan Marrufo 07/11/17 09:21: Resident reporting to have all needed durable medical equipment already set up within the home. Original Note: Plan of care meeting held. Resident present as well as resident son. Resident requesting for discharge date to be set for 07/12/17, team is agreeable to discharge date. Resident plans to discharge home alone. Resident plans to continue with outpatient physical therapy through [facility]. Resident son plans to provide transportation home for resident. Telephone call to Charline Aguilar. Outpatient physical therapy appointment set up for 07/16/17 @ 1100. Armand Jean reporting to already have an order. Proposed discharge date: 07/12/17 PLAN: Discharge home alone with outpatient Physical Therapy. Meagan ARAUJO, DIRECTOR SOFTWARE DEVELOPMENT
[2017-07-11 16:00] VITALS: BP 134/59; PULSE 72; RESP 18; TEMP 36.7; O2SAT 96
--- NOTE | 2017-07-11 20:56 | PCM.DC ---
- Discharge Diagnoses Current Active Problems: Current Active and Chronic Problems Osteoarthritis of right hip (Chronic) GERD (gastroesophageal reflux disease) (Chronic) You will use the following diet at home:: No restrictions, Regular Your food should be the consistency of: Regular Your liquids should be the consistency of: Regular/Thin Discharge Activity: Return to Normal Activity, May Shower, Use Walker Weight Bearing Status: Weight bearing as tolerated Call your doctor if you observe: Fever of 101 or Higher, Inability to urinate, Inability to have a bowel movement, Chest pain, Uncontrolled pain Allergies/Adverse Reactions: Allergies ibuprofen Allergy (Verified 06/07/17 09:15) Other REACTION W/ KIDNEYS meloxicam [From Mobic] Allergy (Verified 06/07/17 09:15) Other REACTION WITH KIDNEYS methylprednisolone [From Medrol] Allergy (Verified 06/07/17 09:15) Other MADE HER FEEL FUNNY IN THE HEAD Sulfa (Sulfonamide Antibiotics) Allergy (Verified 06/07/17 09:15) Unknown UNK REACTION-HAD A CHILD Medications to take at Discharge Amlodipine Besylate [Norvasc] 10 mg PO DAILY 06/07/17 Hydroxychloroquine [Plaquenil] 200 mg PO BIDCM 06/07/17 Losartan Potassium [Cozaar] 25 mg PO DAILY 06/07/17 Multivitamin [Daily Multiple Vitamin] 1 each PO DAILY 06/07/17 Ranitidine [Zantac] 150 mg PO BID 06/07/17 Sertraline HCl [Zoloft] 100 mg PO DAILY 06/07/17 Acetaminophen [Tylenol] 1,000 mg PO Q8 07/04/17 Acetaminophen [Tylenol] 1,000 mg PO Q8 tablet 07/11/17 Aspirin 325 mg PO BIDCM #40 tab 07/11/17 Iron Polysaccharide Complex [Ferrex 150] 150 mg PO DAILYCM #30 cap 07/11/17 Oxycodone [Oxyir] 5 - 10 mg PO Q4H PRN PRN 7 Days #45 tab 07/11/17 Polyethylene Glycol 3350 [Miralax] 17 gm PO DAILY #30 packet 07/11/17 Senna/Docusate Sodium [Senokot-S] 2 tab PO BID #120 tab 07/11/17 The following prescriptions were given: Oxycodone [Oxyir] 5 - 10 mg PO Q4H PRN PRN 7 Days #45 tab PRN Reason: Mod-Severe Pain (4-02/20) Iron Polysaccharide Complex [Ferrex 150] 150 mg PO DAILYCM #30 cap Polyethylene Glycol 3350 [Miralax] 17 gm PO DAILY #30 packet Aspirin 325 mg PO BIDCM #40 tab Senna/Docusate Sodium [Senokot-S] 2 tab PO BID #120 tab Primary Care Physician: Donn Barajas MD [Primary Care Provider] - Please follow up with your Primary Care Physician in: 1 week. Please Follow Up With: ASUNCION LAINEZ ASST Please Follow Up With: Celso Swain DO When: 2 weeks. Proposed Discharge Date: 07/12/17
--- NOTE | 2017-07-11 20:58 | PCM.DC.SUM ---
Discharge Date and Diagnosis Date of Admission: 07/04/17 Date of Discharge: 07/12/17 - Secondary Discharge Diagnosis Chronic Problems Osteoarthritis of right hip (Chronic) GERD (gastroesophageal reflux disease) (Chronic) Depression (Chronic) Rheumatoid arthritis (Chronic) Hypertension (Chronic) Hospital Course and Treatment Imaging Results: 07/04/17 15:48 Diet: Regular Diet Food consistency:: Regular Liquid Consistency:: Regular/Thin Is pt able to select menu?: Yes Clinical Impression(s) from Imaging Studies KUB X-Ray 07/05/17 10:28 IMPRESSION: Nonspecific bowel gas pattern. Mild right basilar atelectasis and small right pleural effusion. Electronically Signed: Manoj Burt MD at 11:29 EST Tel [phone], Service support , Operations: None Procedures: None Summary of Care Provided: The patient is a 82 year old Female with below past medical history hospitalized for right total hip arthroplasty 07/02/[address] Celso Swain admitted to TCU for rehabilitation, strengthening, prior to discharge home with family. [] Discharge home alone. Will have outpatient physical therapy. Discharge Diet: No Restrictions Discharge Activity: Return to Normal Activity, May Shower, Use Walker Weight Bearing Status: Weight bearing as tolerated Call your doctor if you observe: Fever of 101 or Higher, Inability to urinate, Inability to have a bowel movement, Chest pain, Uncontrolled pain Home Medications: Medications to take at Discharge Amlodipine Besylate [Norvasc] 10 mg PO DAILY 06/07/17 Hydroxychloroquine [Plaquenil] 200 mg PO BIDCM 06/07/17 Losartan Potassium [Cozaar] 25 mg PO DAILY 06/07/17 Multivitamin [Daily Multiple Vitamin] 1 each PO DAILY 06/07/17 Ranitidine [Zantac] 150 mg PO BID 06/07/17 Sertraline HCl [Zoloft] 100 mg PO DAILY 06/07/17 Acetaminophen [Tylenol] 1,000 mg PO Q8 07/04/17 Acetaminophen [Tylenol] 1,000 mg PO Q8 tablet 07/11/17 Aspirin 325 mg PO BIDCM #40 tab 07/11/17 Iron Polysaccharide Complex [Ferrex 150] 150 mg PO DAILYCM #30 cap 07/11/17 Oxycodone [Oxyir] 5 - 10 mg PO Q4H PRN PRN 7 Days #45 tab 07/11/17 Polyethylene Glycol 3350 [Miralax] 17 gm PO DAILY #30 packet 07/11/17 Senna/Docusate Sodium [Senokot-S] 2 tab PO BID #120 tab 07/11/17 Following Prescrptions Were Given to Patient: Oxycodone [Oxyir] 5 - 10 mg PO Q4H PRN PRN 7 Days #45 tab PRN Reason: Mod-Severe Pain (-02/20) Iron Polysaccharide Complex [Ferrex 150] 150 mg PO DAILYCM #30 cap Polyethylene Glycol 3350 [Miralax] 17 gm PO DAILY #30 packet Aspirin 325 mg PO BIDCM #40 tab Senna/Docusate Sodium [Senokot-S] 2 tab PO BID #120 tab Primary Care Physician: Donn Barajas MD [Primary Care Provider] - Please follow up with your Primary Care Physician in: 1 week. Please Follow Up With: ASUNCION LAINEZ ASST Please Follow Up With: Celso Swian DO When: 2 weeks. Disposition: Home Minutes spent on discharge:: 30 Patient Condition:: Stable Meaningful Use Info Meaningful Use Diagnoses (Choose all that apply): None applicable
[2017-07-12 06:00] LABS: Absolute Lymphocyte Count 2.08 X10^3/ul (0.83-4.51); Absolute Neutrophil Count 5.9 X10^3/uL (2.0-7.7); Basophil# 0.04 X10^3/uL; Basophil% 0.4 % (0-1); Eosinophil# 0.33 X10^3/uL; Eosinophils% 3.6 % (0-5); Hematocrit 31.4 % (37-47); Lymphocyte # 2.08 X10^3/ul (4.0); Mean Corp Hgb Conc 31.8 g/gl (32-36); Mean Corpuscular Hgb 29.5 pg (27.0-32.0); Mean Corpuscular Volume 92.6 fL (81-99); Mean Platelet Vol. 9.4 fl (6.2-12.0); Monocyte# 0.67 X10^3/uL; Monocyte% 7.4 % (0-10); Neutrophil # 5.89 X10^3/uL (2.7-7.7); Platelet Count 440 K/mm3 (150-450); RBC Distribution Width CV 14.1 % (11.6-14.6); RBC Distribution Width SD 46.6 fl (35.1-43.9); Red Blood Count 3.39 M/mm3 (4.2-5.4); White Blood Count 9.1 K/mm3 (4.4-11.0)
[2017-07-12 06:02] LABS: POSITIVE COUNT NO; POSITIVE DIFFERENTIAL NO; POSITIVE MORPHOLOGY NO
[2017-07-12] MEDS: Sertraline 100 MG Tablet PO (06:12)
[2017-07-12] MEDS: amLODIPine 10 MG Tablet PO (06:12)
[2017-07-12] MEDS: Losartan Potassium 25 MG Tablet PO (06:12)
[2017-07-12] MEDS: Acetaminophen 500 MG Tablet 1000 MG PO (06:12)
[2017-07-12] MEDS: RANITIDINE HCL 150 MG TABLET PO (06:12)
[2017-07-12] MEDS: Sucralfate 1 GM Tablet PO (06:13)
[2017-07-12 06:19] LABS: Anion Gap 8 (5-15); BUN 21 mg/dL (7-18); BUN/Creat Ratio 22.5 RATIO (10-20); Calcium,Total 8.4 mg/dL (8.5-10.1); Chloride 109 mmol/L (98-107); Creatinine, Serum 0.93 mg/dL (0.55-1.02); EST Glomerular Filtration Rate 62 mL/min (>60); Est Glom Filt Rate - Afr Amer 74 mL/min (>60); Estimated Creatinine Clearance 43.41 ml/min; Glucose 95 mg/dL (74-106); Potassium 3.6 mmol/L (3.5-5.1); Sodium Level 146 mmol/L (136-145)
[2017-07-12] MEDS: Iron Polysaccharide Complex 150 MG CAPSULE PO (08:03)
[2017-07-12] MEDS: Aspirin 325 MG Tablet PO (08:03)
[2017-07-12] MEDS: Hydroxychloroquine 200 MG Tablet PO (08:03)
[2017-07-12 10:24] VITALS: BP 142/51; PULSE 70; RESP 18; TEMP 37; O2SAT 96
--- NOTE | 2017-07-12 14:22 | CASEMGMT ---
Insurance Notified insurance of resident discharge on 07/12/17 to home alone with outpatient physical therapy. Auth#[id number] Meagan ARAUJO, TEACHER DANCING
--- NOTE | 2017-07-17 11:48 | MDS.RN ---
Information for the mds was obtained from review of the clinical record, interview of resident, staff, and direct observation of resident's care.
== END 2017-07-12 10:35 | disposition home or self-care (01) | DRG 561 ==
PROVIDERS: Admitting Provider Family Medicine Geriatric Medicine; Family Provider Family Medicine; PCP Family Medicine; Visit Provider Family Medicine Geriatric Medicine
DX: Z47.1 Aftercare following joint replacement surgery (principal); M06.9 Rheumatoid arthritis, unspecified; F32.9 Major depressive disorder, single episode, unspecified; K21.9 Gastro-esophageal reflux disease without esophagitis; Z96.641 Presence of right artificial hip joint; I10 Essential (primary) hypertension; Z79.899 Other long term (current) drug therapy
CPT/HCPCS: 36415; 74018; 80048; 85025; 92507; 92526; 92610; 97110; 97116; 97162; 97165; 97530; 97535; 97802

== ENCOUNTER 2024-05-15 08:22 | Observation (INO) | payer MEDICARE, SELFPAY ==
[2024-05-15] VITALS (11 sets, daily range): BP systolic 146–190; BP diastolic 61–83; PULSE 61–85; RESP 13–18; TEMP 36.5–37.2; O2SAT 95–98; BMI 31.6; BMI 30.2
--- NOTE | 2024-05-15 08:46 | EKG12_ITS ---
Test Reason : WEAKNESS Blood Pressure : */* mmHG Vent. Rate : 66 BPM Atrial Rate : 66 BPM P-R Int : 182 ms QRS Dur : 104 ms QT Int : 418 ms P-R-T Axes : 60 33 201 degrees QTcB Int : 438 ms Sinus rhythm with Premature atrial complexes Possible Inferior infarct , age undetermined ST & T wave abnormality, consider anterolateral ischemia Abnormal ECG Confirmed by DIANNA SIMMONS, CAMMIE ([id number]), news assignment editor MOISES TORRES ([id number]) on 05/16/2024 8:20:44 AM Referred By: Confirmed By: CAMMIE BUSTAMANTE MD
--- NOTE | 2024-05-15 08:46 | RAD_ITS ---
STUDY: X-RAY CHEST REASON FOR EXAM: Female, 89 years old. Substernal chest pain TECHNIQUE: Single AP portable view of the chest. COMPARISON: 07/03/2007 FINDINGS: EKG leads overlie the chest The lungs are clear and expanded. There is no demonstrated pleural abnormality. Normal size heart. Normal mediastinum and enedina. Normal visualized pulmonary arteries. There is atherosclerotic calcification of the aortic arch with tortuosity. Normal visualized thoracic spine. Normal visualized ribs, clavicles, and shoulders. There is no demonstrated abnormality of the visualized soft tissue structures of the upper abdomen. RAD/Chest 1 View (Portable) IMPRESSION: No acute pulmonary process Electronically Signed: Jamil Cordova MD at 9:29 EST ,
--- NOTE | 2024-05-15 08:46 | EX.ED.DYSGE1 ---
HPI History of Present Illness Chief Complaint: Weakness Informant: patient Onset/Context/Timing Onset: Today Context: Sudden Onset Timing: Continuous Quality: Shaky feeling Location: Generalized Worsened by: Nothing Relieved by: Nothing Narrative Narrative: Patient with generalized weakness that began today. Patient states she had a feels weak all over. Patient states I just do not feel right. Patient states she feels shaky at times. Patient admits to some tightness in her chest. Patient states nothing makes it worse and nothing makes it better. Patient denies any fevers or chills. Patient denies any nausea or vomiting. Patient denies any shortness of breath or cough. Family states the patient made a mistake with her bank account recently and he thinks this may be have some anxiety component to it. PFSH PFSH Medical History Non-smoker Home Medications ?Medication ?Instructions ?Recorded ?Last Taken ?Type amlodipine 10 mg tablet (Norvasc) 10 mg PO DAILY BP 06/07/17 07/04/17 History hydroxychloroquine 200 mg tablet 200 mg PO BIDCM RA 06/07/17 07/04/17 History losartan 25 mg tablet 25 mg PO DAILY BP 06/07/17 07/04/17 History multivitamin (Daily Multiple 1 ea PO DAILY VITAMIN 06/07/17 07/04/17 History tablet) sertraline 100 mg tablet 100 mg PO DAILY ANTIDEPRESSANT 06/07/17 07/04/17 History acetaminophen 500 mg tablet 1,000 mg PO Q8 PRN PAIN 07/04/17 Unknown History aspirin 325 mg tablet 81 mg PO DAILY ANTICOAGULANT 05/15/24 Unknown History calcium polycarbophil 625 mg 1,250 mg PO DAILY 05/15/24 Unknown History tablet (Fiber-Tabs) trazodone 50 mg tablet 25 mg PO QHS PRN PRN sleep 05/15/24 Unknown History Allergy/AdvReac Type Severity Reaction Status Date / Time ibuprofen Allergy Other Verified 05/15/24 08:23 meloxicam (From Mobic) Allergy Other Verified 05/15/24 08:23 methylprednisolone (From Allergy Other Verified 05/15/24 08:23 Medrol) Sulfa (Sulfonamide Allergy Unknown Verified 05/15/24 08:23 Antibiotics) Surgical History (Updated 05/15/24 @ 16:[address] 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 Social History Smoking Status: Never smoker ROS ROS ED Constitutional Constitutional ED: Denies chills or fever(s) Eyes Eyes: Denies blurry vision or change in vision ENT ENT ED: Denies rhinorrhea or sore throat Cardiovascular Cardiovascular: Reports chest pain; Denies palpitations Respiratory/Chest Respiratory/Chest: Denies cough or dyspnea Gastrointestinal Gastrointestinal: Denies nausea or vomiting Genitourinary Genitourinary ED: Denies dysuria or hematuria Musculoskeletal Musculoskeletal: Denies back pain or neck pain Integumentary Denies abscess or rash Neurologic Neurologic: Denies headache(s) or weakness Allergic/Immunologic Allergic/Immunologic ED: Denies mouth swelling or urticaria EXAM Physical Exam Const Vital Signs: 05/15/24 08:24 05/15/24 09:23 05/15/24 10:00 Temperature 98.9 F Temperature Source Oral Pulse Rate 74 61 69 Respiratory Rate 18 14 18 Blood Pressure 190/83 H 168/61 H 164/67 H Blood Pressure Mean 118 96 99 Pulse Ox 98 95 98 Oxygen Delivery Method Room Air Room Air 05/15/24 11:00 05/15/24 12:00 Temperature Temperature Source Pulse Rate 65 65 Respiratory Rate 15 13 Blood Pressure 162/65 H 182/67 H Blood Pressure Mean 97 105 Pulse Ox 95 96 Oxygen Delivery Method Room Air Room Air Positive well nourished and well developed General Appearance ED: well developed and NAD HEENT Reports moist mucous membranes and dry mucous membranes Mouth ED: Yes dry mucous membranes Mouth: dry mucous membranes Neck supple and no JVD Chest Wall inspection of chest normal and palpation of chest normal Resp normal respiratory effort and clear to auscultation bilaterally Cardio regular rate and regular rhythm GI non-tender and non-distended Palpation: soft Extremity normal to inspection General Extremety ED: Negative for edema or tenderness General Extremity: Negative for edema Neuro oriented x3, CN's II-XII intact bilaterally and no sensory deficits noted Sensorium / Orientation: alert Motor Exam: strength 5/5 throughout MDM MDM MDM Narrative Medical decision making narrative: Differential diagnosis includes cardiac dysrhythmia, cardiac ischemia, pneumonia, electrolyte abnormality, dehydration, and anxiety. EKG will be obtained to assess for cardiac dysrhythmia and cardiac ischemia. Chest x-ray will be obtained to assess for pneumonia and pneumothorax. CBC will be obtained to assess for leukocytosis and anemia. Basic metabolic profile will be obtained to assess for renal function, and electrolyte abnormality. High-sensitivity troponin will be obtained to assess for cardiac ischemia. 2-hour repeat high-sensitivity troponin will be obtained to assess for ongoing cardiac ischemia. Lab Data Attestation: I reviewed the patient's lab results. Lab results narrative: CBC was reviewed and was within normal limits. Basic metabolic profile was reviewed. BUN was 24 and creatinine was 1.41. These are slightly increased from previous result. Potassium was slightly low at 3.2. High-sensitivity troponin was reviewed and was elevated at 191. 2-hour repeat high-sensitivity troponin was reviewed and was elevated at 213. Urinalysis was reviewed. There is no evidence of urinary tract infection or hematuria. Labs: Laboratory Results - last 24 hr 05/15/24 05/15/24 05/15/24 08:40 10:56 11:13 WBC 9.0 RBC 5.05 Hgb 14.7 Hct 44.6 MCV 88.3 MCH 29.1 MCHC 33.0 RDW Std Deviation 43.7 RDW Coeff of Mindy 13.6 Plt Count 376 MPV 10.5 Immature Gran % (Auto) 0.400 Neut % (Auto) 74.7 H Lymph % (Auto) 17.1 L [place] % (Auto) 5.7 Eos % (Auto) 1.3 Baso % (Auto) 0.8 Absolute Neuts (auto) 6.7 Absolute Lymphs (auto) 1.54 Nucleated RBC % 0 Sodium 141 Potassium 3.2 L Chloride 105 Carbon Dioxide 29.0 Anion Gap 7 BUN 24 H Creatinine 1.41 H Estim Creat Clear Calc 30.47 Est GFR (MDRD) Af Amer 45 L Est GFR (MDRD) Non-Af 38 L BUN/Creatinine Ratio 17.0 Glucose 119 H Calcium 9.4 Troponin I High Sens 191 H* 213 H* Urine Color Straw Urine Clarity Clear Urine pH 7.0 Ur Specific [place] 1.010 Urine Protein 30 H Urine Glucose (UA) Normal Urine Ketones Negative Urine Occult Blood Negative Urine Nitrite Negative Urine Bilirubin Negative Urine Urobilinogen Normal Ur Leukocyte Esterase Negative Urine RBC 0 SEEN Urine WBC 0-5 SEEN Ur Squamous Epith Cells 0-5 SEEN Urine Bacteria 0 SEEN Urine Mucus 0 SEEN Radiography Chest X-Ray - ED: 1 View, Read by ED Physician, Read by Radiologist and No Acute Disease Diagnostic Testing: Clinical Impression(s) from Imaging Studies Chest X-Ray 05/15/24 08:46 IMPRESSION: No acute pulmonary process Electronically Signed: Jamil Cordova MD at 9:29 EST , Portable 1 view chest x-ray was obtained. On my independent interpretation, lung stratton are clear. There is normal cardiac silhouette. Bony thorax is normal. There is no acute process noted. Radiologist also interpreted the x-ray and agrees. EKG Initial EKG: Attestation: I personally reviewed and interpreted this EKG as follows: Interpretation: Sinus Rhythm (66) and Non-Specific ST Changes Comments: EKG was obtained. On my independent interpretation, it showed a normal sinus rhythm with a rate of 66. UT interval, QRS interval, and QTc intervals were all normal. [place] was normal. There are nonspecific ST-T T wave changes. Prior EKG tracings: not available for review Prior: No Prior Management Discussion w/another healthcare provider: Hospitalist Treatment and Re-Evaluation :: Patient was given aspirin. Patient was advised of her findings. Patient has a HEART score of 5. Patient was advised of the need for admission to the hospital. Patient and family understand and are agreeable with this. Case was discussed with the hospitalist. He will admit the patient to his service. Patient and family understand and are agreeable with the plan. All questions were answered. Discharge Plan Dx/Rx/DC Orders Clinical Impression: Elevated troponin, Hypertension, General weakness Disposition Disposition: Acute Care Hospital [facility] Discharge Date/Time: 05/15/24 13:39
[2024-05-15 09:06] LABS: Absolute Lymphocyte Count 1.54 X10^3/uL (0.83-4.51); Absolute Neutrophil Count 6.7 X10^3/uL (2.0-7.7); Basophil# 0.07 X10^3/uL; Basophil% 0.8 % (0-1); Eosinophil# 0.12 X10^3/uL; Eosinophils% 1.3 % (0-5); Hematocrit 44.6 % (37-47); Hemoglobin 14.7 g/dL (12.0-15.0); Lymphocyte # 1.54 X10^3/ul (0.83-4.51); Lymphocyte % 17.1 % (19-41); Mean Corpuscular Hgb 29.1 pg (27.0-32.0); Mean Corpuscular Volume 88.3 fL (81-99); Mean Platelet Vol. 10.5 fl (6.2-12.0); Monocyte# 0.51 X10^3/uL; Monocyte% 5.7 % (0-10); NRBC Flagged by Analyzer 0 % (0-5); Neutrophil # 6.71 X10^3/uL (2.7-7.7); Neutrophil % 74.7 % (47-70); Platelet Count 376 K/mm3 (150-450); RBC Distribution Width CV 13.6 % (11.6-14.6); RBC Distribution Width SD 43.7 fl (35.1-43.9); Red Blood Count 5.05 M/mm3 (4.2-5.4)
[2024-05-15 09:33] LABS: Anion Gap 7 (5-15); BUN 24 mg/dL (7-18); Calcium,Total 9.4 mg/dL (8.5-10.1); Chloride 105 mmol/L (98-107); Creatinine, Serum 1.41 mg/dL (0.55-1.02); EST Glomerular Filtration Rate 38 mL/min (>60); Est Glom Filt Rate - Afr Amer 45 mL/min (>60); Estimated Creatinine Clearance 30.47 ml/min; Glucose 119 mg/dL (74-106); Potassium 3.2 mmol/L (3.5-5.1); Sodium Level 141 mmol/L (136-145); Troponin-I HS (w/2H Reflex) 191 pg/mL (3.0-54.0)
--- NOTE | 2024-05-15 09:34 | ED.RN ---
TROPONIN 191. DR NORMAN
[2024-05-15] MEDS: Aspirin 81 MG TAB.CHEW 324 MG PO (10:12)
[2024-05-15 10:58] LABS: Reflex Troponin-HS? (from REC) Y
[2024-05-15 11:03] LABS: Bacteria 0 SEEN /hpf (None Seen); Mucous, Urine 0 SEEN /hpf (<or=2+); Red Blood Cells-Urine 0 SEEN /hpf (0-5)
[2024-05-15 11:25] LABS: Color, Urine Straw (Yellow); Glucose, Dipstick Normal (Normal); Ketone-Dipstick Negative (Negative); Leukocyte Esterase-Dipstick Negative /ul (Negative); Nitrite-Dipstick Negative (Negative); Occult Blood-Urine Negative /ul (Negative); Protein-Dipstick 30 mg/dl (Negative); Urine Bilirubin Dipstick Negative (Negative); Urine Clarity Clear (Clear); Urine Urobilinogen Normal (Normal)
[2024-05-15 11:28] LABS: Squamous Epithelial Cells - UA 0-5 SEEN /hpf (5-10); White Blood Cells 0-5 SEEN /hpf (0-5)
[2024-05-15 11:51] LABS: Troponin-I HS 213 pg/mL (3.0-54.0)
--- NOTE | 2024-05-15 13:38 | ED.RN ---
NOT ABLE TO COMPLETE MED REC D/T PATIENT BEING TRANSPORTED TO THE FLOOR BEFORE ABLE TO VERIFY
--- NOTE | 2024-05-15 14:03 | ECHOD_ITS ---
Reason For Study: ELEVATED TROPONIN Procedure This was a 2D Doppler, Color Flow transthoracic echocardiogram. Myocardial strain analysis was performed in this exam to aid in the assessment of cardiac function. The study was technically difficult. Exam performed portable in patient room. Left Ventricle Normal LV size. Mild concentric left ventricular hypertrophy. Left ventricular systolic function is normal. The left ventricular ejection fraction is 60 %. Stage 1 diastolic dysfunction. No regional wall motion abnormalities noted. Right Ventricle Normal RV size. Normal systolic function. Atria Normal left atrium. Normal right atrium. Mitral Valve Normal mitral valve. Aortic Valve Trisinus/trileaflet aortic valve. Peak aortic valve gradient 21 mmHg. Mean aortic valve gradient 11 mmHg. Pulmonic Valve Normal pulmonic valve. Great Vessels Normal aortic root. The pulmonary artery is normal size. Normal inferior vena cava. Pericardium/Pleural No pericardial effusion. MMode/2D Measurements & Calculations LVIDd: 3.8 cm IVSd: 1.4 cm LVOT diam: 1.9 cm LVIDs: 1.9 cm LVPWd: 1.4 cm LVOT area: 2.9 cm2 RVDd: 3.3 cm FS: 49.3 % LAV(MOD-bp): 53.5 ml LVAd ap4: 23.9 cm2 LVAd ap2: 22.4 cm2 LAV(MOD-bp) Indexed: 28.2 ml/m2 LVLd ap4: 7.8 cm LVLd ap2: 7.8 cm LAV(MOD-sp2): 55.1 ml EDV(MOD-sp4): 60.7 ml EDV(MOD-sp2): 54.5 ml LAV(MOD-sp4): 50.3 ml EDV(sp4-el): 62.0 ml EDV(sp2-el): 55.1 ml LVAs ap4: 12.7 cm2 LVAs ap2: 12.3 cm2 LVLs ap4: 6.6 cm LVLs ap2: 6.8 cm ESV(MOD-sp4): 21.1 ml ESV(MOD-sp2): 19.1 ml ESV(sp4-el): 20.7 ml ESV(sp2-el): 18.8 ml EF(MOD-sp4): 65.2 % EF(MOD-sp2): 64.9 % EF(sp4-el): 66.7 % SV(MOD-sp4): 39.6 ml SV(MOD-sp2): 35.4 ml SV(sp4-el): 41.4 ml SI(MOD-sp4): 20.8 ml/m2 SI(MOD-sp2): 18.6 ml/m2 Ao sinus diam: 3.[address] Junction: 2.3 cm LA A4 area: 18.0 cm2 LA dimension(2D): 4.0 cm RA A4 area: 12.1 cm2 TAPSE: 1.6 cm Time Measurements MV dec time: 0.22 sec Doppler Measurements & Calculations MV E max zen: 93.2 cm/sec Lat Peak E' Zen: 8.1 cm/sec Med Peak E' Zen: 6.3 cm/sec MV A max zen: 127.2 cm/sec E/E' lat: 11.5 E/E' med: 14.8 MV E/A: 0.73 MV dec slope: 417.7 cm/sec2 Ao V2 max: 231.4 cm/sec LV V1 max: 143.9 cm/sec Ao max P.4 mmHg LV V1 max P.3 mmHg Ao V2 mean: 159.2 cm/sec LV V1 mean P.6 mmHg Ao mean P.4 mmHg LV V1 mean: 101.9 cm/sec Ao V2 VTI: 46.9 cm LV V1 VTI: 30.3 cm AV (velocity ratio): 0.65 YEIMI(I,D): 1.9 cm2 YEIMI(V,D): 1.8 cm2 SV(LVOT): 86.8 ml PA V2 max: 166.2 cm/sec ECHO/Echo Complete Interpretation Summary Normal LV size. Left ventricular systolic function is normal. The left ventricular ejection fraction is 60 %. Mild concentric left ventricular hypertrophy. Stage 1 diastolic dysfunction. The global longitudinal strain is borderline abnormal. The global longitudinal strain = -16.3% (abnormal). Ordering Physician: Moshe Carlin Performed By: Isabella Woody RDCS
--- NOTE | 2024-05-15 14:39 | PCM.HP.STD ---
HPI - General General Date of Admission: 05/15/24 HPI Narrative NIKKI HAY, is a 89 F who presents to the hospital for generally not feeling well. She denies any fevers or chills, she just states that she just does not feel right. No chest pain or shortness of breath, she denies any chest pressure or discomfort. She denies any history of cardiac issues though she does have a family history of heart disease. No lightheadedness or dizziness. She says this started over the last couple of days but no recent sick contact she denies any upper respiratory infections or myalgias. No leukocytosis or fevers in the ER and chest x-ray was negative for any type of pathology. She does have a slight elevation in her creatinine to 1.4, baseline is around 0.9-1 so not quite an AIDE. EKG was nonischemic unfortunately a troponin was obtained in the ER which was elevated to 191 so recheck was done and it was 213, third troponin is 214. An echo was ordered which did not demonstrate any wall motion abnormality, her EF was 60% with stage I diastolic dysfunction which is not abnormal for her age. [facility] Medical History Non-smoker Home Medications ?Medication ?Instructions ?Recorded ?Last Taken ?Type amlodipine 10 mg tablet (Norvasc) 10 mg PO DAILY BP 06/07/17 07/04/17 History hydroxychloroquine 200 mg tablet 200 mg PO BIDCM RA 06/07/17 07/04/17 History losartan 25 mg tablet 25 mg PO DAILY BP 06/07/17 07/04/17 History multivitamin (Daily Multiple 1 ea PO DAILY VITAMIN 06/07/17 07/04/17 History tablet) sertraline 100 mg tablet 100 mg PO DAILY ANTIDEPRESSANT 06/07/17 07/04/17 History acetaminophen 500 mg tablet 1,000 mg PO Q8 PRN PAIN 07/04/17 Unknown History aspirin 325 mg tablet 81 mg PO DAILY ANTICOAGULANT 05/15/24 Unknown History calcium polycarbophil 625 mg 1,250 mg PO DAILY 05/15/24 Unknown History tablet (Fiber-Tabs) trazodone 50 mg tablet 25 mg PO QHS PRN PRN sleep 05/15/24 Unknown History Allergy/AdvReac Type Severity Reaction Status Date / Time ibuprofen Allergy Other Verified 05/15/24 08:23 meloxicam (From Mobic) Allergy Other Verified 05/15/24 08:23 methylprednisolone (From Allergy Other Verified 05/15/24 08:23 Medrol) Sulfa (Sulfonamide Allergy Unknown Verified 05/15/24 08:23 Antibiotics) Family History (Updated 05/15/24 @ 18:[address] Moshe Carlin MD) Other Cancer Diabetes Heart disease Surgical History (Updated 05/15/24 @ 16:[address] 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 Social History Smoking Status: Never smoker ROS Constitutional Constitutional: Denies chills, fatigue, fever(s) or malaise Eyes Eyes: Denies blurry vision ENT HEENT: Denies headache(s) or nasal discharge Cardiovascular Cardiovascular: Denies chest pain, dyspnea on exertion or syncope Respiratory/Chest Respiratory/Chest: Denies cough, shortness of breath at rest or shortness of breath with exertion Gastrointestinal Gastrointestinal: Denies constipation, diarrhea, nausea or vomiting Genitourinary Genitourinary: Denies dysuria Neurologic Neurologic: Denies focal weakness, numbness or tremor(s) Psychiatric Psychiatric: Denies anxiety or depression Vital Signs Vital Signs Vital Signs: 05/15/24 08:24 05/15/24 09:23 05/15/24 10:00 Temperature 98.9 F Temperature Source Oral Pulse Rate 74 61 69 Respiratory Rate 18 14 18 Respiratory Effort Respiratory Depth Respiratory Pattern Blood Pressure 190/83 H 168/61 H 164/67 H Blood Pressure Mean 118 96 99 Blood Pressure Source Blood Pressure Position Blood Pressure Location Pulse Ox 98 95 98 Oxygen Delivery Method Room Air Room Air 05/15/24 11:00 05/15/24 12:00 05/15/24 13:00 Temperature Temperature Source Pulse Rate 65 65 85 Respiratory Rate 15 13 17 Respiratory Effort Respiratory Depth Respiratory Pattern Blood Pressure 162/65 H 182/67 H 146/66 H Blood Pressure Mean 97 105 92 Blood Pressure Source Blood Pressure Position Blood Pressure Location Pulse Ox 95 96 96 Oxygen Delivery Method Room Air Room Air Room Air 05/15/24 13:37 05/15/24 14:00 05/15/24 14:00 Temperature 98.5 F 97.7 F L Temperature Source Temporal Pulse Rate 82 73 75 Respiratory Rate 15 18 Respiratory Effort Respiratory Depth Respiratory Pattern Blood Pressure 176/68 H 177/75 H Blood Pressure Mean 104 109 Blood Pressure Source Monitor Blood Pressure Position Semi-Fowlers Blood Pressure Location Right Arm Pulse Ox 96 97 Oxygen Delivery Method Room Air 05/15/24 14:00 Temperature Temperature Source Pulse Rate Respiratory Rate Respiratory Effort Normal Respiratory Depth Normal Respiratory Pattern Normal Blood Pressure Blood Pressure Mean Blood Pressure Source Blood Pressure Position Blood Pressure Location Pulse Ox Oxygen Delivery Method Room Air Weight Weight: 181 lb 14.102 oz Body Mass Index (BMI) 30.2 Physical Exam Narrative General: Alert, Oriented x3, Cooperative, No apparent distress HEENT: Atraumatic, PERRLA, EOMI, Normocephalic Oral: Moist Mucosa Neck: Supple, No JVD Lungs: Clear to auscultation, Normal air movement, No rhonchi, No wheeze, No rales Cardiovascular: Regular rate, Regular Rhythm, Normal S1, Normal S2, murmur Abdomen: Soft, Non Tender, Non-Distended, No Hepato-splenomegaly Extremities: No edema, Capillary Refill Less than 3 Seconds Skin: No rashes, No breakdown Musculoskeletal: No Tenderness to Palpation of Joints or Extremities Neurological: No focal neurological deficits, Motor Exam 5/5 strength throughout, Sensory exam intact to light touch and pain Psych/Mental Status: Normal Affect, Appropriate Results Lab / Micro Data 05/15/24 08:40 05/15/24 08:40 Labs: Laboratory Results - last 24 hr 05/15/24 08:40: WBC 9.0, RBC 5.05, Hgb 14.7, Hct 44.6, MCV 88.3, MCH 29.1, MCHC 33.0, RDW Std Deviation 43.7, RDW Coeff of Mindy 13.6, Plt Count 376, MPV 10.5, Immature Gran % (Auto) 0.400, Neut % (Auto) 74.7 H, Lymph % (Auto) 17.1 L, [place] % (Auto) 5.7, Eos % (Auto) 1.3, Baso % (Auto) 0.8, Absolute Neuts (auto) 6.7, Absolute Lymphs (auto) 1.54, Nucleated RBC % 0, Sodium 141, Potassium 3.2 L, Chloride 105, Carbon Dioxide 29.0, Anion Gap 7, BUN 24 H, Creatinine 1.41 H, Estim Creat Clear Calc 30.47, Est GFR (MDRD) Af Amer 45 L, Est GFR (MDRD) Non-Af 38 L, BUN/Creatinine Ratio 17.0, Glucose 119 H, Calcium 9.4, Troponin I High Sens 191 H* 05/15/24 10:56: Urine Color Straw, Urine Clarity Clear, Urine pH 7.0, Ur Specific [place] 1.010, Urine Protein 30 H, Urine Glucose (UA) Normal, Urine Ketones Negative, Urine Occult Blood Negative, Urine Nitrite Negative, Urine Bilirubin Negative, Urine Urobilinogen Normal, Ur Leukocyte Esterase Negative, Urine RBC 0 SEEN, Urine WBC 0-5 SEEN, Ur Squamous Epith Cells 0-5 SEEN, Urine Bacteria 0 SEEN, Urine Mucus 0 SEEN 05/15/24 11:13: Troponin I High Sens 213 H* Imaging Radiology Impression Chest X-Ray 05/15/24 08:46 IMPRESSION: No acute pulmonary process Electronically Signed: Jamil Cordova MD at 9:29 EST Reading Location ID and State: [address] [place] [address] , Service support , Assessment & Plan Assessment/Plan (1) Elevated troponin: PLAN: Plan 1. Elevated troponin/mild aortic stenosis/essential HTN ? Echo demonstrates an EF of 60% with mild aortic stenosis and stage I diastolic dysfunction ? Given the slight elevation of her troponin and the lack of chest pain, will order a stress test for tomorrow there is no wall motion abnormality at this time on echo ? Continue with Norvasc as well as losartan ? Continue with aspirin ? Regardless of outcome would recommend outpatient cardiology follow-up for her mild aortic stenosis given her elevated troponin 2. Rheumatoid arthritis ? Stable ? Continue with hydroxychloroquine 3. Anxiety/depression ? Stable ? Continue with Zoloft DVT: Ambulation 75 minutes was spent on direct patient care, including documentation as well as chart review and collaboration with colleagues Charges/Coding Visit Charges Inpatient E&M: 37574 Init Hosp L3
[2024-05-15 15:49] LABS: Troponin-I HS 214 pg/mL (3.0-54.0)
[2024-05-15] MEDS: Hydroxychloroquine 200 MG Tablet PO (16:54)
[2024-05-15] MEDS: Metoprolol Tartrate 25 MG Tablet PO (21:07)
[2024-05-16 02:00] VITALS: BP 182/63; PULSE 56; RESP 16; TEMP 36.6; O2SAT 97
--- NOTE | 2024-05-16 05:55 | EKG12_ITS ---
Test Reason : PRE STRESS Blood Pressure : */* mmHG Vent. Rate : 51 BPM Atrial Rate : 51 BPM P-R Int : 206 ms QRS Dur : 108 ms QT Int : 462 ms P-R-T Axes : 36 43 206 degrees QTcB Int : 425 ms Sinus bradycardia with Premature atrial complexes Cannot rule out Inferior infarct , age undetermined ST & T wave abnormality, consider anterolateral ischemia Abnormal ECG When compared with ECG of 15-May-2024 08:50, MANUAL COMPARISON REQUIRED DATA IS UNCONFIRMED Confirmed by DIANNA SIMMONS, CAMMIE ([id number]), supervising film or videotape editor MOISES TORRES ([id number]) on 05/16/2024 8:28:19 AM Referred By: Confirmed By: CAMMIE BUSTAMANTE MD
[2024-05-16] MEDS: Losartan Potassium 25 MG Tablet PO (06:03)
[2024-05-16] MEDS: Aspirin 81 MG TAB.CHEW PO (06:22)
--- NOTE | 2024-05-16 09:56 | STRESSREP ---
Stress Test Report Pharmacologic myocardial perfusion stress test. 89-year-old lady with a history of abnormal cardiac enzymes Resting EKG demonstrates sinus bradycardia with a rate of [address] depression is noted in leads II, III, aVF, V2 through V6. Resting blood pressure is 152/78 mmHg. 0.4 mg of regadenoson was infused per usual protocol followed by rapid intravenous saline flush injection. Continuous EKG monitoring was performed. The maximum heart rate was 63 bpm which was 47% of max impacted heart rate the maximum workload was 1 metabolic equivalent. At rest there were no ST or T wave changes noted to suggest ischemia and at peak infusion nonspecific ST changes were noted which did not meet the criteria for ischemia. No clinical angina is noted. The final blood pressure was 162/60 mmHg. Myocardial perfusion protocol. 12.0 mCi of technetium 99m sestamibi was injected at rest. 0.4 mg of regadenoson was infused per usual protocol. At peak infusion 34.6 mCi of technetium 99m sestamibi was injected stress images were obtained stress and rest images were reconstructed and compared in the short axis vertical long and horizontal long axis. Gated images were also obtained. Perfusion SPECT analysis: Review of the stress images demonstrate normal uptake of tracer noted in all areas of the myocardium. There is reduced perfusion noted in the basal to mid inferior wall. The resting images similar demonstrated normal uptake of tracer noted in all areas of the myocardium. Reduced perfusion is noted in the basal to mid inferior wall. A previous inferior infarct cannot be completely excluded. Conclusion: Normal pharmacologic myocardial perfusion stress test. Previous inferior infarct cannot be excluded
[2024-05-16 10:05] VITALS: BP 155/59; PULSE 50; RESP 16; TEMP 36.7; O2SAT 95
[2024-05-16] MEDS: amLODIPine 10 MG Tablet PO (10:10)
[2024-05-16] MEDS: Sertraline 100 MG Tablet PO (10:10)
[2024-05-16] MEDS: Hydroxychloroquine 200 MG Tablet PO (10:11)
[2024-05-16 10:53] LABS: Absolute Lymphocyte Count 1.92 X10^3/uL (0.83-4.51); Absolute Neutrophil Count 7.7 X10^3/uL (2.0-7.7); Basophil# 0.07 X10^3/uL; Basophil% 0.7 % (0-1); Eosinophils% 1.9 % (0-5); Hematocrit 42.5 % (37-47); Hemoglobin 13.7 g/dL (12.0-15.0); Lymphocyte # 1.92 X10^3/ul (0.83-4.51); Lymphocyte % 17.9 % (19-41); Mean Corp Hgb Conc 32.2 g/dL (32-36); Mean Corpuscular Hgb 28.4 pg (27.0-32.0); Mean Platelet Vol. 10.2 fl (6.2-12.0); Monocyte% 7.4 % (0-10); NRBC Flagged by Analyzer 0 % (0-5); Neutrophil # 7.74 X10^3/uL (2.7-7.7); Neutrophil % 71.9 % (47-70); Platelet Count 313 K/mm3 (150-450); RBC Distribution Width CV 13.5 % (11.6-14.6); RBC Distribution Width SD 43.8 fl (35.1-43.9); Red Blood Count 4.83 M/mm3 (4.2-5.4); White Blood Count 10.8 K/mm3 (4.4-11.0)
--- NOTE | 2024-05-16 10:57 | PCM.DC ---
Discharge Instructions Diet Discharge Diet: Low fat / Low cholesterol DC O2, CPAP, BIPAP needs Home O2 Discharge instructions: No Dressing / Incision Discharge Activity: Return to Normal Activity Dressing / Incision Call your doctor if you observe: Fever of 101 or Higher, Shortness of breath, Dizziness, Fainting spells, Swelling in the ankles, Chest pain and Increased palpitations (irregular heartbeat) Follow Up Care Test Results: Test results from this visit will be discussed in further detail at your follow-up appointment, if applicable. Discharge Plan Admission Admit Date/Time: 05/15/24 12:05 Attending Provider: Moshe Carlin Primary Care Provider: Joi Dial Discharge Orders/Prescriptions Prescriptions: New metoprolol tartrate 25 mg Tablet 12.5 mg PO BID 30 Days Qty: 30 0RF Continued multivitamin [Daily Multiple] 1 EACH tablet 1 ea PO DAILY sertraline 100 MG tablet 100 mg PO DAILY amlodipine [Norvasc] 10 MG tablet 10 mg PO DAILY losartan 25 MG tablet 25 mg PO DAILY hydroxychloroquine 200 MG tablet 200 mg PO BIDCM acetaminophen 500 MG tablet 1,000 mg PO Q8 PRN (Reason: PAIN) trazodone 50 mg tablet 25 mg PO QHS PRN PRN (Reason: sleep) calcium polycarbophil [Fiber-Tabs] 625 mg tablet 1,250 mg PO DAILY Patient Comments: takes 4 fiber caps daily aspirin 325 MG tablet 81 mg PO DAILY Referrals / Follow Up: Joi Dial, HEATHER [Primary Care Provider] - Within 1 Week Jadon Matias MD [Med Staff - Active Staff] - Within 3 Months Disposition Disposition (needs filled in before D/C Order can be placed): Home, Self Care
[2024-05-16 11:01] LABS: Anion Gap 8 (5-15); BUN 22 mg/dL (7-18); BUN/Creat Ratio 18.2 RATIO (10-20); Calcium,Total 9.2 mg/dL (8.5-10.1); Chloride 106 mmol/L (98-107); Creatinine, Serum 1.21 mg/dL (0.55-1.02); EST Glomerular Filtration Rate 45 mL/min (>60); Est Glom Filt Rate - Afr Amer 54 mL/min (>60); Estimated Creatinine Clearance 34.75 ml/min; Glucose 114 mg/dL (74-106); Potassium 3.4 mmol/L (3.5-5.1); Sodium Level 139 mmol/L (136-145)
[2024-05-16 11:12] VITALS: BP 155/59; PULSE 50; RESP 16; TEMP 36.7; O2SAT 95
--- NOTE | 2024-05-16 11:37 | CASEMGMT ---
CASA DYER NOTE: Discharge order is in. RN MANISHA to room. Introduced self and role. 2 sons @ bedside and will be taking pt home. Pt made aware Rx has been sent to [facility] and they state they can pick that up today. Pt states she lives alone, is independent, and denies having any concerns w/discharging home. She is aware of f/u appts needed. 6 cl: 24. Jayden CHAN CASA CM
--- NOTE | 2024-05-16 13:38 | PCM.DC.SUM ---
Providers Date of Admission: 05/15/24 Primary Care Physician: HEATHER Call Reason For Visit: ELEVATED TROPONIN Diagnosis Discharge Diagnosis (1) Elevated troponin: Status: Acute Code(s): R79.89 - Other specified abnormal findings of blood chemistry Medications at Discharge Home Medications amlodipine 10 mg tablet (Norvasc) 10 mg PO DAILY BP 06/07/17 hydroxychloroquine 200 mg tablet 200 mg PO BIDCM RA 06/07/17 losartan 25 mg tablet 25 mg PO DAILY BP 06/07/17 multivitamin (Daily Multiple tablet) 1 ea PO DAILY VITAMIN 06/07/17 sertraline 100 mg tablet 100 mg PO DAILY ANTIDEPRESSANT 06/07/17 acetaminophen 500 mg tablet 1,000 mg PO Q8 PRN PAIN 07/04/17 aspirin 325 mg tablet 81 mg PO DAILY ANTICOAGULANT 05/15/24 calcium polycarbophil 625 mg tablet (Fiber-Tabs) 1,250 mg PO DAILY supplement 05/15/24 trazodone 50 mg tablet 25 mg PO QHS PRN PRN sleep 05/15/24 metoprolol tartrate 25 mg tablet 12.5 mg (1/2 x 25 mg) PO BID 30 days #30 tabs 05/16/24 Hospital Course Operations None Procedures 2-D Echocardiogram and Stress test Summary of Care Provided Minutes Spent on Discharge: 37 Hospital Course: Per HPI: NIKKI HAY, is a 89 F who presents to the hospital for generally not feeling well. She denies any fevers or chills, she just states that she just does not feel right. No chest pain or shortness of breath, she denies any chest pressure or discomfort. She denies any history of cardiac issues though she does have a family history of heart disease. No lightheadedness or dizziness. She says this started over the last couple of days but no recent sick contact she denies any upper respiratory infections or myalgias. No leukocytosis or fevers in the ER and chest x-ray was negative for any type of pathology. She does have a slight elevation in her creatinine to 1.4, baseline is around 0.9-1 so not quite an AIDE. EKG was nonischemic unfortunately a troponin was obtained in the ER which was elevated to 191 so recheck was done and it was 213, third troponin is 214. An echo was ordered which did not demonstrate any wall motion abnormality, her EF was 60% with stage I diastolic dysfunction which is not abnormal for her age. Hospital Course: 1. Elevated troponin/mild aortic stenosis/essential HTN?89-year-old female presented to the hospital with just generalized feelings of being unwell. These have resolved on the day of discharge. She could not point to any specific thing just not feeling well in the ER she troponin was obtained which was elevated so she was admitted to the hospital. I did add metoprolol 25 mg p.o. twice daily to drop her heart rate in the 50s so I decreased the dose of 12-1/2 mg p.o. twice daily on discharge. She had an echocardiogram with an EF of 60% and mild aortic stenosis with stage I diastolic dysfunction with no obvious wall motion abnormalities with stress test was obtained which was nonischemic and showed the potential for old infarct but nothing acute. I discussed with her the plan for discharge today she expressed understanding of the risk benefits going home and would like to go home today. Recommend that she follow-up with her PCP in 3 to 5 days to monitor her blood pressure and I also, given her elevated troponin, referred her to cardiology as an outpatient for further evaluation. 2. Rheumatoid arthritis, anxiety, depression all chronic medical conditions which complicate her care. Her home medications were continued where appropriate Weight / BMI Weight Weight: 181 lb 14.102 oz Body Mass Index (BMI) 30.2 ABG / Lab / Microbiology Data 05/16/24 10:35 05/16/24 10:35 Laboratory: Laboratory Results - last 24 hr 05/15/24 14:40: Troponin I High Sens 214 H* 05/16/24 10:35: WBC 10.8, RBC 4.83, Hgb 13.7, Hct 42.5, MCV 88.0, MCH 28.4, MCHC 32.2, RDW Std Deviation 43.8, RDW Coeff of Minyd 13.5, Plt Count 313, MPV 10.2, Immature Gran % (Auto) 0.200, Neut % (Auto) 71.9 H, Lymph % (Auto) 17.9 L, Cochran % (Auto) 7.4, Eos % (Auto) 1.9, Baso % (Auto) 0.7, Absolute Neuts (auto) 7.7, Absolute Lymphs (auto) 1.92, Nucleated RBC % 0, Sodium 139, Potassium 3.4 L, Chloride 106, Carbon Dioxide 25.0, Anion Gap 8, BUN 22 H, Creatinine 1.21 H, Estim Creat Clear Calc 34.75, Est GFR (MDRD) Af Amer 54 L, Est GFR (MDRD) Non-Af 45 L, BUN/Creatinine Ratio 18.2, Glucose 114 H, Calcium 9.2 Radiography Diagnostic Testing: Radiology Impression Echocardiogram 05/15/24 14:03 Interpretation Summary Normal LV size. Left ventricular systolic function is normal. The left ventricular ejection fraction is 60 %. Mild concentric left ventricular hypertrophy. Stage 1 diastolic dysfunction. The global longitudinal strain is borderline abnormal. The global longitudinal strain = -16.3% (abnormal). Ordering Physician: Moshe Carlin Performed By: Isabella Woody RDCS D/C Instructions Discharge Diet: Low fat / Low cholesterol Call your doctor if you observe: Fever of 101 or Higher, Shortness of breath, Dizziness, Fainting spells, Swelling in the ankles, Chest pain and Increased palpitations (irregular heartbeat) DC O2, CPAP, BIPAP Needs Home O2 Discharge instructions: No Meaningful Use Info Meaningful Use Meaningful Use Diagnoses (Choose all that apply): None applicable Ischemic Stroke Statin Dosing Therapy Reference: STATIN DOSE THERAPY REFERENCE: * Patients > 75 years receive moderate or high dose statin therapy. * Patients 75 years or YOUNGER should receive HIGH intensity statin dose unless contraindicated. You will be required to document reason for non-treatment if statin daily dose does not meet guidelines. HIGH DOSE STATIN THERAPY DAILY Atorvastatin > than or = to 40 mg Rosuvastatin > than or = to 20 mg Amlodipine + Atorvastatin > than or = to 2.5/40 mg Ezetimibe + Simvastatin 10/80 mg Simvastatin 80mg Discharge Plan Admission Admit Date/Time: 05/15/24 12:05 Attending Provider: Moshe Carlin Primary Care Provider: Joi Dial Discharge Orders/Prescriptions Prescriptions: New metoprolol tartrate 25 mg Tablet 12.5 mg PO BID 30 Days Qty: 30 0RF Continued multivitamin [Daily Multiple] 1 EACH tablet 1 ea PO DAILY sertraline 100 MG tablet 100 mg PO DAILY amlodipine [Norvasc] 10 MG tablet 10 mg PO DAILY losartan 25 MG tablet 25 mg PO DAILY hydroxychloroquine 200 MG tablet 200 mg PO BIDCM acetaminophen 500 MG tablet 1,000 mg PO Q8 PRN (Reason: PAIN) trazodone 50 mg tablet 25 mg PO QHS PRN PRN (Reason: sleep) calcium polycarbophil [Fiber-Tabs] 625 mg tablet 1,250 mg PO DAILY Patient Comments: takes 4 fiber caps daily aspirin 325 MG tablet 81 mg PO DAILY Referrals / Follow Up: Joi Dial CNS [Primary Care Provider] - Within 1 Week Jadon Matias MD [Med Staff - Active Staff] - Within 3 Months Disposition Disposition (needs filled in before D/C Order can be placed): Home, Self Care Charges/Coding Visit Charges Inpatient E&M: 90264 Disch Hosp >30min
== END 2024-05-16 11:05 | disposition home or self-care (01) ==
LOC: ED 12:08 → PCU 13:24
PROVIDERS: Admitting Provider Family Medicine; Emergency Provider Emergency Medicine; PCP Clinical Nurse Specialist Adult Health; Visit Provider Family Medicine
DX: R79.89 Other specified abnormal findings of blood chemistry (principal); M06.9 Rheumatoid arthritis, unspecified; R53.1 Weakness; I35.0 Nonrheumatic aortic (valve) stenosis; F41.9 Anxiety disorder, unspecified; I10 Essential (primary) hypertension; Z79.899 Other long term (current) drug therapy; Z79.82 Long term (current) use of aspirin; F32.A Depression, unspecified; R94.31 Abnormal electrocardiogram [ECG] [EKG]; I49.1 Atrial premature depolarization; R00.1 Bradycardia, unspecified
CPT/HCPCS: 36415; 71045; 78452; 80048; 81001; 84484; 85025; 93005; 93017; 93306; 99221; 99285; A9500; A4216; G0378; J2785